=== PATIENT | male | born 1995 | race Caucasian/White ===

== ENCOUNTER 2023-08-16 10:29 | Outpatient (AMB) | payer MEDICARE, MEDICAID, SELFPAY ==
[2023-08-16 10:30] VITALS: BP 132/84; PULSE 80; O2SAT 97; BMI 42.2
--- NOTE | 2023-08-16 10:30 | MHC.PC.OV ---
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: No Allergies No Known Allergies Allergy (Verified 08/16/23 10:49) Medication List - Last Reconciled 08/16/23 by Austin Jensen PA-C acetaminophen mg PO benztropine 1 mg PO BID desmopressin mg PO divalproex ER mg PO divalproex ER 1,000 mg PO BID haloperidol 5 mg PO BID ibuprofen 600 mg PO TID levothyroxine 175 mcg PO DAILY lithium carbonate 600 mg PO BID melatonin 9 mg PO BEDTIME PRN ondansetron 4 mg PO Q6-8H PRN propranolol 40 mg PO BID propranolol ER 80 mg PO DAILY Tobacco use date assessed: 08/16/23 Dental Screening Dental Screen Date: 08/16/23 Did you have a dental visit in the last 12 months?: No Did you have a dental problem in the last 6 months where you did not have access to dental care?: No Was dental information given to patient?: Patient has dentist HPI Medical Director Of Hospice Request PE HPI Details Patient is a 28-year-old male here today for new patient annual physical. Patient has a past medical history significant for mood disorder, hypothyroidism. He presents today with long-term workers. Previous PCP was in [facility]. Concern--> has some right great toe calcification to which he has an upcoming appointment with a manager progressive care for foot care. Also has been suffering with constipation and would like a stool softener .. According to patient's mother (on speaker phone during visit)--> patient has cerebral palsy and when at a young child did undergo brain surgery for a large hemangioma that resulted in Tyree being left with left-sided hemiplegia. .. Diabetes insipidus: Was followed by land development project manager in [facility] and continues on desmopressin. Vaccines: need Flu vaccine, Need Tdap, UTD COVID [facility] Family History (Updated 08/16/23 @ 11:03 by Austin Jensen PA-C) Paternal Grandmother No problems noted. Social History Housing: Assisted Living Facility (long-term ) Patient Tobacco Use Status: Never used Tobacco service: No Current occupational status: disabled Cognitive needs: Yes Hearing needs: No Vision needs: No Questionnaire PHQ-9 Over the last 2 weeks, how often have you been bothered by any of the following problems? 1. Little interest or pleasure in doing things: several days 2. Feeling down, depressed, or hopeless: several days 3. Trouble falling or staying asleep, or sleeping too much: not at all 4. Feeling tired or having little energy: not at all 5. Poor appetite or overeating: not at all 6. Feeling bad about yourself - or that you are a failure or have let yourself or your family down: not at all 7. Trouble concentrating on things, such as reading the newspaper or watching television: not at all 8. Moving or speaking so slowly that other people could have noticed. Or the opposite - being so fidgety or restless that you have been moving around a lot more than usual: not at all 9. Thoughts that you would be better off or of hurting yourself in some way: not at all Total score: 2 Depression Screening Interpretation: Positive Depression Screening Follow-up: Existing condition and In treatment Depression Screening Done: Yes Source: Developed by Drs. Francis Diop, Perla Mike, Jimenez Woods and colleagues, with an educational chelle from [employer]. Thrive Questionnaire Date Thrive assessed: 08/16/23 I am a: Parent/Caregiver What is your living situation today?: I have a steady place to live Within the past 12 months, did the food you bought not last and you didn't have the money to get more?: Never true Within the past 12 months, did you worry whether your food would run out before you got money to buy more?: Never true Do you have trouble paying for medicines?: No Do you have trouble getting transportation to medical appointments?: No Do you have trouble paying your heating and electricity bill?: No Do you have trouble taking care of your child, family member or friend?: No Do you have trouble with day-to-day activities such as bathing, preparing meals, shopping, managing finances, etc.?: No Are you currently unemployed and looking for a job?: No Are you interested in more education?: No Please select the resources that you would like help with: None THRIVE Score: 0 AUDIT C Alcohol Use Questionnaire (AUDIT-C) 1. How often do you have a drink containing alcohol?: Never 3. How often do you have six or more drinks on one occasion?: Never Total Score: 0 CORNELIO-7 AMB Questionnaire CORNELIO-7 Date CORNELIO - 7 assessed: 08/16/23 Feeling nervous, anxious, or on edge: 1 = Several days Not being able to stop or control worryin = Several days Worrying too much about different things: 0 = Not at all Trouble relaxin = Not at all Being so restless that it is hard to sit still: 0 = Not at all Becoming easily annoyed or irritable: 0 = Not at all Feeling afraid as if something awful might happen: 0 = Not at all Total CORNELIO-7 score (0-4 normal; 5-9 mild; 10-14 moderate; 15-21 severe): 2 Source: Developed by Drs. Francis Diop, Perla Mike, Jimenez Woods and colleagues, with an educational chelle from [employer]. Physical exam (Primary Care) Vital Signs: Last Vital Signs Pulse 80 08/16/23 10:30 BP 132/84 08/16/23 10:30 Pulse Ox 97 08/16/23 10:30 Oxygen Delivery Method Room Air 08/16/23 10:30 BMI result Body Mass Index 42.2 Tobacco/Smoking Status: Tobacco use Status Tobacco use date assessed 08/16/23 08/16/23 10:46 Patient Tobacco Use Status Never used Tobacco 08/16/23 10:46 PHQ-9: PHQ-9 Score PHQ-9: Total score 2 08/16/23 10:53 Depression Screening Interpretation: Positive Depression Screening Follow-up: Existing condition and In treatment Thrive Assessment: Date of Thrive Assessment Date Thrive assessed 08/16/23 08/16/23 10:46 Assessment and Plan Assessment & Plan (1) Diabetes insipidus: Code(s): E23.2 - Diabetes insipidus Plan: Recently transferred from [facility]. Was followed by an land development project manager and still has follow-up. Does take desmopressin (2) Hypothyroid: Code(s): E03.9 - Hypothyroidism, unspecified Qualifiers: Hypothyroidism type: acquired Qualified Code(s): E03.9 - Hypothyroidism, unspecified Plan: Again was followed by endocrinology and [facility]. Does take levothyroxine on a daily basis. Will check TSH to assure normal for (3) Mood disorder: Code(s): F39 - Unspecified mood [affective] disorder Plan: Patient is followed by a psychiatrist who manages his mental health medications. (4) Bipolar 1 disorder: Code(s): F31.9 - Bipolar disorder, unspecified Plan: Again patient followed by psychiatrist who manages his mental health medications (5) Cerebral palsy: Code(s): G80.9 - Cerebral palsy, unspecified Qualifiers: Cerebral palsy type: spastic hemiplegic Qualified Code(s): G80.2 - Spastic hemiplegic cerebral palsy Plan: Has cerebral palsy with left-sided hemiplegia. He also did have a hemangioma that was surgically removed that left him left-sided hemiplegia Does need referral to orthotic specialist for left lower extremity AFO (6) Brain hemangioma: Code(s): D18.02 - Hemangioma of intracranial structures Plan: As above (7) Screening for diabetes mellitus (DM): Code(s): Z13.1 - Encounter for screening for diabetes mellitus (8) Left-sided hemiplegic cerebral palsy: Code(s): G80.8 - Other cerebral palsy Plan: As above. Family requesting to be seen by orthopedic to be evaluated for AFO for his left lower leg. (9) Chronic GERD: Code(s): K21.9 - Gastro-esophageal reflux disease without esophagitis Plan: Was previously antacid medications for his GERD and would like to restart this medication. Will start omeprazole 20 mg. (10) Obese: Code(s): E66.9 - Obesity, unspecified Qualifiers: Obesity type: due to excess calories Obesity classification: adult class 3 (BMI >= 40) Serious obesity comorbidity presence: without serious comorbidity Body mass index: BMI 40.0-44.9 Qualified Code(s): E66.01 - Morbid (severe) obesity due to excess calories; Z68.41 - Body mass index [BMI] 40.0-44.9, adult Plan: Patient does understand his BMI is over 40 to which we discuss this in the office. Advised on low carbohydrate diet and reducing his soda intake. Orders: Orders Complete Blood Count no Diff Today G80.8 - Other cerebral palsy TSH reflex Free T4 Today E03.9 - Hypothyroidism, unspecified Comprehensive [place]. 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
== END 2023-08-16 11:23 | disposition home or self-care (01) ==
PROVIDERS: PCP Physician Assistant; Visit Provider Physician Assistant
DX: Z00.00 Encounter for general adult medical examination without abnormal findings (principal); E23.2 Diabetes insipidus; F39 Unspecified mood [affective] disorder; F31.9 Bipolar disorder, unspecified; G80.2 Spastic hemiplegic cerebral palsy; D18.02 Hemangioma of intracranial structures; G80.8 Other cerebral palsy; E66.01 Morbid (severe) obesity due to excess calories; Z68.41 Body mass index [BMI] 40.0-44.9, adult; E03.9 Hypothyroidism, unspecified; K21.9 Gastro-esophageal reflux disease without esophagitis
CPT/HCPCS: 99385

== ENCOUNTER 2023-09-20 10:01 | Outpatient (REF) | payer MEDICARE, MEDICAID, SELFPAY ==
[2023-09-20 13:55] LABS: Hematocrit 45.9 % (42.0-52.0); Hemoglobin 15.1 g/dl (14.0-18.0); Mean Corpuscular HGB Conc 32.9 g/dl (31.0-36.0); Mean Corpuscular Hemoglobin 29.7 pg (27.0-33.0); Mean Corpuscular Volume 90.2 fL (80.0-98.0); Mean Platelet Volume 9.5 fL (9.4-12.4); Platelet Count 259 X10*3/uL (160-400); Red Blood Count 5.09 X10*6/uL (4.60-5.80); White Blood Count 6.3 X10*3/uL (4.8-10.8)
[2023-09-20 14:24] LABS: Alanine Aminotransferase 28 U/L (0-40); Albumin Level 4.6 g/dL (3.5-5.0); Alkaline Phosphatase 69 U/L (39-117); Anion Gap 11 (12-20); Aspartate Amino Transferase 22 U/L (5-37); Bilirubin Total 1.1 mg/dL (0.0-1.0); Blood Urea Nitrogen 16 mg/dL (9-16); Carbon Dioxide 26 mmol/L (22-29); Chloride 107 mmol/L (96-108); Estimated Glomerular Filt Rate > 60; Glucose Fasting 95 mg/dL (60-99); Potassium 4.3 mmol/L (3.3-5.1); Sodium 140 mmol/L (135-145); Total Protein 7.6 g/dL (6.5-8.0)
[2023-09-20 14:26] LABS: TSH reflex Free T4 0.89 uIU/mL (0.32-4.0)
== END 2023-09-20 10:02 | disposition home or self-care (01) ==
LOC: HO.HMGCLDS 10:01
PROVIDERS: Visit Provider Physician Assistant
DX: G80.8 Other cerebral palsy (principal); E03.9 Hypothyroidism, unspecified; Z13.1 Encounter for screening for diabetes mellitus
CPT/HCPCS: 36415; 80053; 84443; 85027

== ENCOUNTER 2024-02-06 07:42 | Outpatient (AMB) | payer MEDICARE, MEDICAID, SELFPAY ==
[2024-02-06 08:13] VITALS: BP 132/78; PULSE 83; O2SAT 98; BMI 40.9
--- NOTE | 2024-02-06 08:13 | MHC.PC.OV ---
Vital Signs 02/06/24 08:13 Height 5 ft 5 in Weight 245 lb 13.047 oz BMI 40.9 BP 132/78 Blood Pressure Location Lt brachial Position Sitting Pulse 83 Pulse Source Pulse Oximeter Pulse Oximetry (%) 98 Oxygen Delivery Method Room Air Intake Visit Reasons: [facility] 01/10 given other client's medication Intake Note: Patient is here for hospital discharge follow up. Patient was discharged from [hospital name] on [date]. 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: No Allergies No Known Allergies Allergy (Verified 02/06/24 08:22) Medication List - Last Reconciled 02/06/24 by Austin Jensen PA-C acetaminophen mg PO benztropine 1 mg PO BID desmopressin mg PO divalproex ER mg PO divalproex ER 1,000 mg PO BID docusate sodium (Colace) 100 mg PO DAILY 30 days haloperidol 5 mg PO BID ibuprofen 600 mg PO TID levothyroxine 175 mcg PO DAILY lithium carbonate 600 mg PO BID melatonin 9 mg PO BEDTIME PRN miscellaneous medical supply 1 ea miscellaneous DAILY 99 days omeprazole 20 mg PO DAILY 90 days ondansetron 4 mg PO Q6-8H PRN propranolol 40 mg PO BID propranolol ER 80 mg PO DAILY Tobacco use date assessed: 08/16/23 Dental Screening Dental Screen Date: 08/16/23 HPI [facility] 01/10 given other client's medication HPI Details Patient is a 29-year-old male here today for hospital discharge follow-up. Patient has a past medical history significant for mood disorder, hypothyroidism. Was seen at [facility] in 01/11/2024 for a medication administration error. He presents today with [facility]. Other issues reported today was his left 5th digit nail was self removed by [facility]. They have been placing a Band-Aid over to protect the nail bed. Also has developed a callus formation over his left 5th digit as well. They have been seen by urgent care for this toe infection was placed on antibiotics. 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 Social History Housing: Assisted Living Facility ([facility] Patient Tobacco Use Status: Never used Tobacco service: No Current occupational status: disabled Cognitive needs: Yes Hearing needs: No Vision needs: No Questionnaire Thrive Questionnaire Date Thrive assessed: 08/16/23 I am a: Parent/Caregiver What is your living situation today?: I have a steady place to live Within the past 12 months, did the food you bought not last and you didn't have the money to get more?: Never true Within the past 12 months, did you worry whether your food would run out before you got money to buy more?: Never true Do you have trouble paying for medicines?: No Do you have trouble getting transportation to medical appointments?: No Do you have trouble paying your heating and electricity bill?: No Do you have trouble taking care of your child, family member or friend?: No Do you have trouble with day-to-day activities such as bathing, preparing meals, shopping, managing finances, etc.?: No Are you currently unemployed and looking for a job?: No Are you interested in more education?: No Please select the resources that you would like help with: None THRIVE Score: 0 AUDIT C Alcohol Use Questionnaire (AUDIT-C) 1. How often do you have a drink containing alcohol?: Never 3. How often do you have six or more drinks on one occasion?: Never Total Score: 0 CORNELIO-7 AMB Questionnaire CORNELIO-7 Date CORNELIO - 7 assessed: 08/16/23 Source: Developed by Drs. Francis Diop, Perla Mike, Jimenez Woods and colleagues, with an educational chelle from [employer]. Review of Systems Const Denies headache(s) Eyes Denies loss of vision ENT Denies vertigo, Denies dizziness, Denies headache(s) and Denies sore throat Card Denies chest pain, Denies leg edema and Denies lightheadedness Resp Denies cough, Denies hemoptysis and Denies wheezing GI Denies abdominal pain, Denies melena, Denies constipation, Denies diarrhea and Denies vomiting Denies dysuria, Denies urinary frequency and Denies urinary urgency Musc Denies arthralgias, Denies joint swelling, Denies numbness and Denies tingling Neuro Denies Abnormal speech present, Denies behavioral changes, Denies vertigo, Denies dizziness, Denies headache(s), Denies loss of vision, Denies memory loss, Denies numbness and Denies tingling Psych Denies anxiety, Denies behavioral changes, Denies depression, Denies memory loss and Denies panic attacks Favian/Lymph Denies easy bleeding and Denies easy bruising Aller/Immun Denies wheezing Physical exam (Primary Care) Vital Signs: Last Vital Signs Pulse 83 02/06/24 08:13 BP 132/78 02/06/24 08:13 Pulse Ox 98 02/06/24 08:13 Oxygen Delivery Method Room Air 02/06/24 08:13 BMI result Body Mass Index 40.9 Tobacco/Smoking Status: Tobacco use Status Tobacco use date assessed 08/16/23 02/06/24 08:18 Patient Tobacco Use Status Never used Tobacco 02/06/24 08:18 Thrive Assessment: Date of Thrive Assessment Date Thrive assessed 08/16/23 02/06/24 08:18 Const General: healthy appearing, no acute distress, alert and awake Nutritional Appearance: well nourished Orientation/consciousness: oriented to person, oriented to place and oriented to time HENMT Ears: TM's normal bilaterally General nose exam: Normal nasal mucous membranes and turbinates present Eyes Conjunctivae: conjunctivae normal Sclerae: sclerae normal Pupils: Equal, round and reactive pupils present Neck Neck: Yes no lymphadenopathy and Yes no JVD Thyroid: Thyroid normal Carotids: no bruits Resp Effort & Inspection: normal respiratory effort and not tachypneic Auscultation: no crackles, no rales, no rhonchi and no wheezes Cardio Rate: regular rate Rhythm: regular rhythm Heart sounds: no murmurs and normal S1 and S2 GI Palpation (GI): Soft to palpation, nontender, no hepatomegaly and no splenomegaly Auscultation: normal bowel sounds Skin General skin exam: no rashes or lesions noted and dry skin Neuro General: oriented to person, oriented to place and oriented to time Cranial nerves: Yes Equal, round and reactive pupils present Speech: No Abnormal speech present Gait exam (Neuro): Normal gait present Motor exam (neuro): no tremor noted Extrem Right upper extremity: full ROM Left upper extremity: full ROM Hand/finger images: 1. COMPLETE REMOVAL OF THE NAIL Right lower extremity: full ROM; no edema Left lower extremity: full ROM; no edema Psych Mental Status: mental status grossly normal Speech and movement: Normal speech and movement present Affect: normal affect Attitude: cooperative Thought process: Normal thought process present Assessment and Plan Assessment & Plan (1) Infected nailbed of finger: Code(s): L03.019 - Cellulitis of unspecified finger Qualifiers: Laterality: left Qualified Code(s): L03.012 - Cellulitis of left finger Plan: Patient has a complete self removal of the left 5th digit nail. Will continue management with Band-Aid and topical antibiotic. Explained that it will take a while for the nail to grow back. (2) Foot callus: Code(s): L84 - Corns and callosities Plan: Has foot callus of the left 5th digit. Did see urgent care for the acute infection, appears noninfected at this time. Advised on following with Podiatry for possible foot/shoe insert to offload area. Orders: Referrals Gastroenterology Referral K21.9 - Gastro-esophageal reflux disease without esophagitis Medications: New mupirocin 2% Apply thin layer to left pinky nail bed daily 1 appl topical DAILY 22 grams 0RF 30 days L03.012 - Cellulitis of left finger Coding Level of Care Code Est Pt Level 3 (57961) Diagnoses Infection of nail bed of finger of left hand L03.012 Laterality: left Foot callus L84
== END 2024-02-06 08:39 | disposition home or self-care (01) ==
PROVIDERS: PCP Physician Assistant; Visit Provider Physician Assistant
DX: L03.012 Cellulitis of left finger (principal); L84 Corns and callosities
CPT/HCPCS: 99213

== ENCOUNTER 2024-03-11 19:04 | Emergency (ER) | payer MEDICARE, MEDICAID, SELFPAY ==
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
[2024-03-11 19:30] VITALS: BP 131/90; PULSE 70; RESP 16; TEMP 36.6; O2SAT 94; BMI 42.8
[2024-03-12 00:18] VITALS: BP 131/90; PULSE 70; RESP 16; TEMP 36.6; O2SAT 94
== END 2024-03-12 00:20 | disposition home or self-care (01) ==
PROVIDERS: Emergency Provider Emergency Medicine
DX: S50.811A Abrasion of right forearm, initial encounter (principal); S00.91XA Abrasion of unspecified part of head, initial encounter; R51.9 Headache, unspecified; M25.551 Pain in right hip; M79.601 Pain in right arm; Y04.2XXA Assault by strike against or bumped into by another person, initial encounter; Y93.89 Activity, other specified; Y92.89 Other specified places as the place of occurrence of the external cause; Y99.0 Civilian activity done for income or pay
CPT/HCPCS: 70450; 99282; 99284

== ENCOUNTER 2024-04-10 10:53 | Outpatient (AMB) | payer MEDICARE, MEDICAID, SELFPAY ==
--- NOTE | 2024-04-10 11:03 | A.OFFPC_ITS ---
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 Required: No Accompanied by: Program Staff Allergies No Known Allergies Allergy (Verified 04/10/24 11:18) Medication List - Last Reconciled 04/10/24 by Austin Jensen PA-C acetaminophen mg PO benztropine 1 mg PO BID desmopressin mg PO divalproex ER 1,000 mg PO BID divalproex ER 250 mg PO BID docusate sodium (Colace) 100 mg PO DAILY 30 days haloperidol 5 mg PO BID ibuprofen 600 mg PO TID levothyroxine 175 mcg PO DAILY lithium carbonate 300 mg PO BID lithium carbonate 150 mg PO BID lithium carbonate 300 mg PO BID melatonin 9 mg PO BEDTIME PRN melatonin 3 mg PO BEDTIME PRN miscellaneous medical supply 1 ea miscellaneous DAILY 99 days mupirocin 2% 1 appl topical DAILY 30 days omeprazole 20 mg PO DAILY 90 days ondansetron 4 mg PO Q6-8H PRN propranolol 40 mg PO BID propranolol ER 80 mg PO DAILY Tobacco use date assessed: 08/16/23 Dental Screening Dental Screen Date: 08/16/23 HPI f/u med review HPI Details Patient is a 29-year-old male here today for follow-up visit Patient has a past medical history significant for mood disorder, hypothyroidism, cerebral palsy history of brain hemorrhage with left-sided hemiplegia He presents today with residential workers. Bipolar disorder/mood disorder: Patient followed by Psychiatry who manages all of his mental health medications. trim line worker reports patient's behavior mood has been fairly stable on current dose of his mental health medications. .. Hypothyroidism: Continues on levothyroxine 175 mcg. Will continue to follow TSH to assure normal .. According to patient's mother (on speaker phone during visit)--> patient has cerebral palsy and when at a young child did undergo brain surgery for a large hemangioma that resulted in Tyree being left with left-sided hemiplegia. .. Diabetes insipidus: Was followed by supervising producer in [facility] and continues on desmopressin. [facility] Medical History Hypothyroid Bipolar disorder Mood disorder Cerebral palsy Bipolar 1 disorder Chronic GERD Family History Paternal Grandmother No problems noted. Social History Housing: Assisted Living Facility (residential ) Patient Tobacco Use Status: Never used Tobacco service: No Current occupational status: disabled Cognitive needs: Yes Hearing needs: No Vision needs: No Questionnaire Thrive Questionnaire Date Thrive assessed: 08/16/23 Are you currently unemployed and looking for a job?: I choose not to answer this question CORNELIO-7 AMB Questionnaire CORNELIO-7 Date CORNELIO - 7 assessed: 08/16/23 Source: Developed by Drs. Francis Diop, Perla Mike, Jimenez Woods and colleagues, with an educational chelle from [employer]. Review of Systems Const Denies headache(s) Eyes Denies loss of vision ENT Denies vertigo, Denies dizziness, Denies headache(s) and Denies sore throat Card Denies chest pain, Denies leg edema and Denies lightheadedness Resp Denies cough, Denies hemoptysis and Denies wheezing GI Denies abdominal pain, Denies melena, Denies constipation, Denies diarrhea and Denies vomiting Denies dysuria, Denies urinary frequency and Denies urinary urgency Musc Denies arthralgias, Denies joint swelling, Denies numbness and Denies tingling Neuro Denies Abnormal speech present, Denies behavioral changes, Denies vertigo, Denies dizziness, Denies headache(s), Denies loss of vision, Denies memory loss, Denies numbness and Denies tingling Psych Denies anxiety, Denies behavioral changes, Denies depression, Denies memory loss and Denies panic attacks Favian/Lymph Denies easy bleeding and Denies easy bruising Aller/Immun Denies wheezing Physical exam (Primary Care) Vital Signs: Last Vital Signs Pulse 82 04/10/24 11:14 BP 120/70 04/10/24 11:14 Pulse Ox 96 04/10/24 11:14 Oxygen Delivery Method Room Air 04/10/24 11:14 BMI result Body Mass Index 43.3 Tobacco/Smoking Status: Tobacco use Status Tobacco use date assessed 08/16/23 04/10/24 11:03 Patient Tobacco Use Status Never used Tobacco 04/10/24 11:03 Thrive Assessment: Date of Thrive Assessment Date Thrive assessed 08/16/23 04/10/24 11:03 Const General: healthy appearing, no acute distress, alert and awake Nutritional Appearance: well nourished Orientation/consciousness: oriented to person, oriented to place and oriented to time HENMT Ears: TM's normal bilaterally General nose exam: Normal nasal mucous membranes and turbinates present Eyes Conjunctivae: conjunctivae normal Sclerae: sclerae normal Pupils: Equal, round and reactive pupils present Neck Neck: Yes no lymphadenopathy and Yes no JVD Thyroid: Thyroid normal Carotids: no bruits Resp Effort & Inspection: normal respiratory effort and not tachypneic Auscultation: no crackles, no rales, no rhonchi and no wheezes Cardio Rate: regular rate Rhythm: regular rhythm Heart sounds: no murmurs and normal S1 and S2 GI Palpation (GI): Soft to palpation, nontender, no hepatomegaly and no splenomegaly Auscultation: normal bowel sounds Skin General skin exam: no rashes or lesions noted and dry skin Neuro General: oriented to person, oriented to place and oriented to time Cranial nerves: Yes Equal, round and reactive pupils present Speech: No Abnormal speech present Gait exam (Neuro): Normal gait present Motor exam (neuro): no tremor noted Extrem Right upper extremity: full ROM Left upper extremity: full ROM Right lower extremity: full ROM; no edema Left lower extremity: full ROM; no edema Psych Mental Status: mental status grossly normal Speech and movement: Normal speech and movement present Affect: normal affect Attitude: cooperative Thought process: Normal thought process present Assessment and Plan Assessment & Plan (1) Hypothyroid: Code(s): E03.9 - Hypothyroidism, unspecified Qualifiers: Hypothyroidism type: acquired Qualified Code(s): E03.9 - Hypothyroidism, unspecified Plan: Patient continues on levothyroxine 175 mcg daily. TSH has been stable. Will recheck TSH before upcoming annual physical to assure normal. (2) Bipolar disorder: Code(s): F31.9 - Bipolar disorder, unspecified Qualifiers: Active/Remission status: currently active Current bipolar episode type: depressed Current episode severity: moderate Qualified Code(s): F31.32 - Bipolar disorder, current episode depressed, moderate Plan: Patient continues to follow a psychiatrist who manages all of his mental health medications. [facility] staff reports Tyree behaviors have been pretty stable on current doses of his medications. (3) Bipolar 1 disorder: Code(s): F31.9 - Bipolar disorder, unspecified Plan: Again patient followed by psychiatrist who manages his mental health medications (4) Cerebral palsy: Code(s): G80.9 - Cerebral palsy, unspecified Qualifiers: Cerebral palsy type: spastic hemiplegic Qualified Code(s): G80.2 - Spastic hemiplegic cerebral palsy Plan: Has cerebral palsy with left-sided hemiplegia. He also did have a hemangioma that was surgically removed that left him left- sided hemiplegia Does need referral to orthotic specialist for left lower extremity AFO (5) Brain hemangioma: Code(s): D18.02 - Hemangioma of intracranial structures Plan: As above (6) Screening for diabetes mellitus (DM): Code(s): Z13.1 - Encounter for screening for diabetes mellitus Orders: Orders TSH reflex Free T4 Today E03.9 - Hypothyroidism, unspecified Comprehensive [place]. Panel Fast Today Z13.1 - Encounter for screening for diabetes mellitus Complete Blood Count no Diff Today Z13.1 - Encounter for screening for diabetes mellitus Coding Level of Care Code Est Pt Level 4 (27419) Diagnoses Acquired hypothyroidism E03.9 Hypothyroidism type: acquired Bipolar affective disorder, currently depressed, moderate F31.32 Active/Remission status: currently active Current bipolar episode type: depressed Current episode severity: moderate Bipolar 1 disorder F31.9 Spastic hemiplegic cerebral palsy G80.2 Cerebral palsy type: spastic hemiplegic Brain hemangioma D18.02 Screening for diabetes mellitus (DM) Z13.1
[2024-04-10 11:14] VITALS: BP 120/70; PULSE 82; O2SAT 96; BMI 43.3
== END 2024-04-10 11:35 | disposition home or self-care (01) ==
PROVIDERS: Visit Provider Physician Assistant
DX: E03.9 Hypothyroidism, unspecified (principal); F31.32 Bipolar disorder, current episode depressed, moderate; G80.2 Spastic hemiplegic cerebral palsy; D18.02 Hemangioma of intracranial structures; Z13.1 Encounter for screening for diabetes mellitus

== ENCOUNTER → 2024-04-10 10:53 | Outpatient (BNVA) | payer MEDICARE, MEDICAID, SELFPAY | PROVIDERS: Visit Provider Physician Assistant | DX: E03.9 Hypothyroidism, unspecified (principal); F31.32 Bipolar disorder, current episode depressed, moderate; F31.9 Bipolar disorder, unspecified; G80.2 Spastic hemiplegic cerebral palsy | CPT/HCPCS: 99212 ==

== ENCOUNTER 2024-06-25 10:23 | Outpatient (AMB) | payer MEDICARE, MEDICAID, SELFPAY ==
--- NOTE | 2024-06-25 10:44 | A.OFFPC_ITS ---
Vital Signs 06/25/24 10:45 Height 5 ft 4 in Weight 261 lb 0.437 oz BMI 44.8 BP 110/78 Blood Pressure Location Rt brachial Position Sitting Pulse 93 Pulse Source Pulse Oximeter Pulse Oximetry (%) 97 Intake Visit Reasons: [facility] 06/15 Chest pain Community Health Education Coordinator Required: No Accompanied by: Cipriano-Program Allergies No Known Allergies Allergy (Verified 06/25/24 10:51) Medication List - Last Reconciled 06/26/24 by Ravinder Castellanos MD acetaminophen mg PO benztropine 1 mg PO BID desmopressin mg PO divalproex ER 1,000 mg PO BID divalproex ER 250 mg PO BID docusate sodium (Colace) 100 mg PO DAILY 30 days haloperidol 5 mg PO BID ibuprofen 600 mg PO TID levothyroxine 175 mcg PO DAILY lithium carbonate 300 mg PO BID lithium carbonate 150 mg PO BID lithium carbonate 300 mg PO BID melatonin 9 mg PO BEDTIME PRN melatonin 3 mg PO BEDTIME PRN miscellaneous medical supply 1 ea miscellaneous DAILY 99 days mupirocin 2% 1 appl topical DAILY 30 days omeprazole 20 mg PO DAILY 90 days ondansetron 4 mg PO Q6-8H PRN propranolol 40 mg PO BID propranolol ER 80 mg PO DAILY Tobacco use date assessed: 08/16/23 Dental Screening Dental Screen Date: 08/16/23 [facility] Chest pain HPI Details 29-year-old male presents to the office for a follow-up after a recent ER visit. Patient lives in a assisted and complained of chest pain and was taken to the emergency room for evaluation. EKG and serial blood work were unremarkable. Patient is not a reliable historian. The attendant accompanying him is requesting a podiatry consult. [facility] Medical History Hypothyroid Bipolar disorder Mood disorder Cerebral palsy Bipolar 1 disorder Chronic GERD Family History Paternal Grandmother No problems noted. Social History Housing: Assisted Living Facility (assisted ) Patient Tobacco Use Status: Never used Tobacco service: No Current occupational status: disabled Cognitive needs: Yes Hearing needs: No Vision needs: No Questionnaire Thrive Questionnaire Date Thrive assessed: 08/16/23 Are you currently unemployed and looking for a job?: I choose not to answer this question CORNELIO-7 AMB Questionnaire CORNELIO-7 Date CORNELIO - 7 assessed: 08/16/23 Source: Developed by Drs. Francis Dipo, Perla Mike, Jimenez Woods and colleagues, with an educational chelle from [employer]. Physical exam (Primary Care) Vital Signs: Last Vital Signs Pulse 93 06/25/24 10:45 BP 110/78 06/25/24 10:45 Pulse Ox 97 06/25/24 10:45 BMI result Body Mass Index 44.8 Tobacco/Smoking Status: Tobacco use Status Tobacco use date assessed 08/16/23 06/25/24 10:48 Patient Tobacco Use Status Never used Tobacco 06/25/24 10:48 Thrive Assessment: Date of Thrive Assessment Date Thrive assessed 08/16/23 06/25/24 10:48 Const General: cooperative and healthy appearing Nutritional Appearance: well nourished Orientation/consciousness: patient oriented x3 Limitations: no limitations HENMT Head: Yes normal to inspection Eyes General: appearance normal, both eyes and all related structures Neck Neck: Yes normal visual inspection Chest Chest palpation & inspection: normal palpation of entire chest wall Resp Effort & Inspection: normal respiratory effort Neuro General: patient oriented x3 Extrem Other: Right foot: Great toe: Thickened skin on the medial surface. Similar lesion on the 5th toe of the left foot. Coding Level of Care Code Est Pt Level 3 (90272) Complex EM visit Add On G2211 Diagnoses Foot callus L84 Chest pain R07.9 Assessment & Plan Assessment & Plan (1) Foot callus: Code(s): L84 - Corns and callosities Category: Medical Plan: Podiatry consult made. (2) Chest pain: Code(s): R07.9 - Chest pain, unspecified Plan: ER note reviewed. Reassurance.
[2024-06-25 10:45] VITALS: BP 110/78; PULSE 93; O2SAT 97; BMI 44.8
== END 2024-06-25 12:40 | disposition home or self-care (01) ==
PROVIDERS: PCP Physician Assistant; Visit Provider Internal Medicine
DX: L84 Corns and callosities (principal); R07.9 Chest pain, unspecified

== ENCOUNTER → 2024-06-25 10:23 | Outpatient (BNVA) | payer MEDICARE, MEDICAID, SELFPAY | PROVIDERS: PCP Physician Assistant; Visit Provider Internal Medicine | DX: L84 Corns and callosities (principal); R07.9 Chest pain, unspecified | CPT/HCPCS: 99212 ==

== ENCOUNTER 2024-07-25 11:39 | Outpatient (REF) | payer MEDICARE, MEDICAID, SELFPAY ==
[2024-07-26 09:42] LABS: Adenovirus PCR Not Detected (Not Detect.); Bordetella parapertussis PCR Not Detected (Not Detect.); Bordetella pertussis PCR Not Detected (Not Detect.); Chlamydia pneumoniae PCR Not Detected (Not Detect.); Coronavirus 229E PCR Not Detected (Not Detect.); Coronavirus HKU1 PCR Not Detected (Not Detect.); Coronavirus NL63 PCR Not Detected (Not Detect.); Coronavirus OC43 PCR Detected (Not Detect.); Human metapneumovirus PCR Not Detected (Not Detect.); Influenza A PCR Not Detected (Not Detect.); Influenza B PCR Not Detected (Not Detect.); Mycoplasma pneumoniae PCR Not Detected (Not Detect.); Parainfluenza 1 PCR Not Detected (Not Detect.); Parainfluenza 2 PCR Not Detected (Not Detect.); Parainfluenza 3 PCR Not Detected (Not Detect.); Parainfluenza 4 PCR Not Detected (Not Detect.); RSV PCR Not Detected (Not Detect.); Rhino/Enterovirus PCR Not Detected (Not Detect.)
[2024-07-26 09:46] LABS: SARS-CoV-2 PCR Not Detected (Not Detect.)
== END 2024-07-25 11:40 | disposition home or self-care (01) ==
LOC: HO.LAB 11:39
PROVIDERS: PCP Physician Assistant; Visit Provider Physician Assistant
DX: J06.9 Acute upper respiratory infection, unspecified (principal)
CPT/HCPCS: 87633; 99212

== ENCOUNTER 2024-07-25 11:39 | Outpatient (AMB) | payer MEDICARE, MEDICAID, SELFPAY ==
--- NOTE | 2024-07-25 13:05 | MHC.OFFWIV ---
Intake Vital Signs 07/25/24 13:07 Weight 259 lb BP 108/70 Blood Pressure Location Rt brachial Position Sitting Pulse 86 Pulse Source Pulse Oximeter Temp 99.6 F Temp Source Oral Pulse Oximetry (%) 98 Oxygen Delivery Method Room Air Intake Visit Reasons: EP Congestion, cough Intake Note: Patient here for congestion, cough that has been present for 1 day. 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 - Symptoms include a persistent cough and chest pain upon deep inhalation, with no associated fever or ear pain. - Denies headaches, wheezing, or shortness of breath. - Lives in a prison, reports no recent illness among cohabitants. - Symptoms have not been alleviated by [id number] medications besides the use of Tylenol. - No history of asthma; no prior treatments for similar respiratory symptoms have been used. Physical Exam General: Cooperative, healthy appearing, comfortable and no acute distress Orientation/consciousness: Patient oriented x3 Head: Normal to inspection Ears: Hearing grossly normal bilaterally, external ears normal and TM's normal left, right TM blocked by cerumen. Nose: Normal external nose present, Normal nares present and No nasal discharge present Face and sinus: Normal facial exam and Yes sinuses nontender Mouth: Normal oral and palatal mucosa present and moist mucous membranes Throat: Yes tonsils normal, Yes uvula midline. Posterior oropharynx erythema Eyes: Appearance normal, both eyes and all related structures Neck: Normal visual inspection Respiratory: Clear to auscultation bilaterally. Normal respiratory effort, able to speak in complete sentences, Actively coughing, no respiratory distress, not tachypneic, no tripod positioning and no use of accessory muscles, oxygenation is 98% Cardiovascular: Regular rate and rhythm. Normal S1 and S2 Skin: No rashes or lesions noted Neuro: Patient oriented x3 Extremities: Normal to inspection and Yes no clubbing, cyanosis or edema [facility] Medical History Hypothyroid Bipolar disorder Mood disorder Cerebral palsy Bipolar 1 disorder Chronic GERD Family History Paternal Grandmother No problems noted. Social History Housing: Assisted Living Facility (prison ) Patient Tobacco Use Status: Never used Tobacco service: No Current occupational status: disabled Cognitive needs: Yes Hearing needs: No Vision needs: No Review of Systems Const All systems reviewed & are unremarkable except as noted in HPI and below Physical Exam Vital Signs: Last Vital Signs Temp 99.6 F 07/25/24 13:07 Pulse 86 07/25/24 13:07 BP 108/70 07/25/24 13:07 Pulse Ox 98 07/25/24 13:07 Oxygen Delivery Method Room Air 07/25/24 13:07 Assessment & Plan Assessment & Plan (1) URI, acute: Code(s): J06.9 - Acute upper respiratory infection, unspecified Plan: Plan To manage the patient's acute respiratory symptoms, a comprehensive viral panel will be administered to identify potential respiratory infections, including influenza, COVID-19, and RSV. Tessalon Perles has been prescribed for cough management, to be used as needed with an emphasis on nighttime administration to ensure better symptom control while resting. I stress the importance of increasing fluid intake to aid mucus clearance, given the absence of chronic pulmonary conditions. The patient is directed to monitor symptom progression and ensure immediate evaluation if respiratory distress develops. Follow-up actions will be determined based on the results of the viral testing, anticipating additional treatment guidance by the subsequent day. Filled out prison paperwork. Patient was informed and verbally consented to the use of an ambient scribe for clinic note documentation during this visit Orders: Orders Resp Pathogen [place] [facility] J06.9 - Acute upper respiratory infection, unspecified Medications: New benzonatate 200 mg PO TID PRN 14 caps 0RF cough Coding Level of Care Code Est Pt Level 4 (29620) Diagnoses URI, acute J06.9
[2024-07-25 13:07] VITALS: BP 108/70; PULSE 86; TEMP 37.6; O2SAT 98
== END 2024-07-25 14:14 | disposition home or self-care (01) ==
PROVIDERS: PCP Physician Assistant; Visit Provider Physician Assistant
DX: J06.9 Acute upper respiratory infection, unspecified (principal)

== ENCOUNTER 2024-08-01 13:47 | Outpatient (AMB) | payer MEDICARE, MEDICAID, SELFPAY ==
[2024-08-01 14:00] VITALS: BP 102/70; PULSE 81; O2SAT 96; BMI 45.2
--- NOTE | 2024-08-01 14:00 | A.OFFPC_ITS ---
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 Patient has a past medical history significant for mood disorder, hypothyroidism, cerebral palsy history of brain hemorrhage with left-sided hemiplegia Patient recently seen at the [facility] for upper respiratory infection type symptoms. He was tested viral illnesses and was positive for cold virus coronavirus. Other concerns today were of patient's previous history of obstructive sleep apnea. Due to living in a correction they have to confirm this diagnosis. They are interested in getting a home sleep study to confirm diagnosed with obstructive sleep apnea. Also there were some concerns about patient's urinary urgency recently as he has been having some incontinence episodes. They concerned about UTI thus will do a home UA and bring it to the lab at a later date. [facility] Medical History Hypothyroid Bipolar disorder Mood disorder Cerebral palsy Bipolar 1 disorder Chronic GERD Family History Paternal Grandmother No problems noted. Social History Housing: Assisted Living Facility (correction ) Patient Tobacco Use Status: Never used Tobacco e-Cigarette/Vaping Use: Never Used service: No Current occupational status: disabled Cognitive needs: Yes Hearing needs: No Vision needs: No Questionnaire PHQ-9 Over the last 2 weeks, how often have you been bothered by any of the following problems? 1. Little interest or pleasure in doing things: not at all 2. Feeling down, depressed, or hopeless: not at all 3. Trouble falling or staying asleep, or sleeping too much: not at all 4. Feeling tired or having little energy: not at all 5. Poor appetite or overeating: not at all 6. Feeling bad about yourself - or that you are a failure or have let yourself or your family down: not at all 7. Trouble concentrating on things, such as reading the newspaper or watching t elevision: not at all 8. Moving or speaking so slowly that other people could have noticed. Or the opposite - being so fidgety or restless that you have been moving around a lot more than usual: not at all 9. Thoughts that you would be better off or of hurting yourself in some way: not at all Total score: 0 Depression Screening Interpretation: Negative Depression Screening Done: Yes 15042 - PHQ-9 Billing: Yes Source: Developed by Drs. Francis Diop, Perla Mike, Jimenez Woods and colleagues, with an educational chelle from [employer]. Thrive Questionnaire Date Thrive assessed: 08/01/24 I am a: Patient What is your living situation today?: I have a steady place to live Within the past 12 months, did the food you bought not last and you didn't have the money to get more?: Never true Within the past 12 months, did you worry whether your food would run out before you got money to buy more?: Never true Do you have trouble paying for medicines?: No Do you have trouble getting transportation to medical appointments?: No Do you have trouble paying your heating and electricity bill?: No Do you have trouble taking care of your child, family member or friend?: No Do you have trouble with day-to-day activities such as bathing, preparing meals, shopping, managing finances, etc.?: No Are you currently unemployed and looking for a job?: No Are you interested in more education?: No Please select the resources that you would like help with: None Currently or been in a relationship where the following occur: No concerns reported THRIVE Score: 0 AUDIT C Alcohol Use Questionnaire (AUDIT-C) 1. How often do you have a drink containing alcohol?: Never 3. How often do you have six or more drinks on one occasion?: Never Total Score: 0 CORNELIO-7 AMB Questionnaire CORNELIO-7 Date CORNELIO - 7 assessed: 08/01/24 Feeling nervous, anxious, or on edge: 0 = Not at all Not being able to stop or control worryin = Not at all Worrying too much about different things: 0 = Not at all Trouble relaxin = Not at all Being so restless that it is hard to sit still: 0 = Not at all Becoming easily annoyed or irritable: 0 = Not at all Feeling afraid as if something awful might happen: 0 = Not at all Total CORNELIO-7 score (0-4 normal; 5-9 mild; 10-14 moderate; 15-21 severe): 0 Source: Developed by Drs. Francis Diop, Perla Mike, Jimenez Woods and colleagues, with an educational chelle from [employer]. CORNELIO-7 Assessment Billing CORNELIO-7 Assessment Tool: CORNELIO-7 Assessment 12933 Review of Systems Const Denies headache(s) Eyes Denies loss of vision ENT Denies vertigo, Denies dizziness, Denies headache(s) and Denies sore throat Card Denies chest pain, Denies leg edema and Denies lightheadedness Resp Denies cough, Denies hemoptysis and Denies wheezing GI Denies abdominal pain, Denies melena, Denies constipation, Denies diarrhea and Denies vomiting Denies dysuria, Reports urinary frequency and Reports urinary urgency Musc Denies arthralgias, Denies joint swelling, Denies numbness and Denies tingling Neuro Denies Abnormal speech present, Denies behavioral changes, Denies vertigo, Denies dizziness, Denies headache(s), Denies loss of vision, Denies memory loss, Denies numbness and Denies tingling Psych Denies anxiety, Denies behavioral changes, Denies depression, Denies memory loss and Denies panic attacks Favian/Lymph Denies easy bleeding and Denies easy bruising Aller/Immun Denies wheezing Physical exam (Primary Care) Vital Signs: Last Vital Signs Pulse 81 08/01/24 14:00 BP 102/70 08/01/24 14:00 Pulse Ox 96 08/01/24 14:00 Oxygen Delivery Method Room Air 08/01/24 14:00 BMI result Body Mass Index 45.2 Tobacco/Smoking Status: Tobacco use Status Tobacco use date assessed 08/01/24 08/01/24 14:06 Patient Tobacco Use Status Never used Tobacco 08/01/24 14:06 e-Cigarette/Vaping Use Never Used 08/01/24 14:06 PHQ-9: PHQ-9 Score PHQ-9: Total score 0 08/01/24 14:10 Depression Screening Interpretation: Negative Thrive Assessment: Date of Thrive Assessment Date Thrive assessed 08/01/24 08/01/24 14:06 Currently or been in a relationship where the following occur: No concerns reported Const General: healthy appearing, no acute distress, alert and awake Nutritional Appearance: well nourished Orientation/consciousness: oriented to person, oriented to place and oriented to time HENMT Ears: TM's normal bilaterally General nose exam: Normal nasal mucous membranes and turbinates present Eyes Conjunctivae: conjunctivae normal Sclerae: sclerae normal Pupils: Equal, round and reactive pupils present Neck Neck: Yes no lymphadenopathy and Yes no JVD Thyroid: Thyroid normal Carotids: no bruits Resp Effort & Inspection: normal respiratory effort and not tachypneic Auscultation: no crackles, no rales, no rhonchi and no wheezes Cardio Rate: regular rate Rhythm: regular rhythm Heart sounds: no murmurs and normal S1 and S2 GI Palpation (GI): Soft to palpation, nontender, no hepatomegaly and no splenome sophy Auscultation: normal bowel sounds Skin General skin exam: no rashes or lesions noted and dry skin Neuro General: oriented to person, oriented to place and oriented to time Cranial nerves: Yes Equal, round and reactive pupils present Speech: No Abnormal speech present Gait exam (Neuro): Normal gait present Motor exam (neuro): no tremor noted Extrem Right upper extremity: full ROM Left upper extremity: full ROM Right lower extremity: full ROM; no edema Left lower extremity: full ROM; no edema Psych Mental Status: mental status grossly normal Speech and movement: Normal speech and movement present Affect: normal affect Attitude: cooperative Thought process: Normal thought process present Coding Level of Care Code Est Pt Level 4 (35041) Diagnoses Urinary frequency R35.0 URI, acute J06.9 Witnessed episode of apnea R06.81 Additional Codes CORNELIO-7 Assessment Billing - CORNELIO-7 Assessment Tool: CORNELIO-7 Assessment 14945 ([id number]) PHQ-9 - 67036 - PHQ-9 Billing: Yes ([id number]) Assessment & Plan Assessment & Plan (1) Urinary frequency: Code(s): R35.0 - Frequency of micturition Category: Medical Plan: As per HPI patient has been experiencing urinary frequency though unclear if this is due to uncontrolled diabetes insipidus. 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 Will check for type 2 diabetes as well on upcoming labs. (2) URI, acute: Code(s): J06.9 - Acute upper respiratory infection, unspecified Category: Medical Plan: Has resolved- no further cough (3) Witnessed episode of apnea: Code(s): R06.81 - Apnea, not elsewhere classified Category: Medical Plan: There has been unclear history of patient having obstructive sleep apnea thus will send for home sleep study to evaluate for sleep apnea to confirm diagnoses. Orders: Orders UA CC w/rflx Micro + Cult Today R30.0 - Dysuria, R35.0 - Frequency of micturition RT home sleep study Today R06.81 - Apnea, not elsewhere classified, R40.0 - Somnolence Hemoglobin A1c Today E23.2 - Diabetes insipidus
== END 2024-08-01 14:33 | disposition home or self-care (01) ==
PROVIDERS: PCP Physician Assistant; Visit Provider Physician Assistant
DX: R35.0 Frequency of micturition (principal); J06.9 Acute upper respiratory infection, unspecified; R06.81 Apnea, not elsewhere classified

== ENCOUNTER → 2024-08-01 13:47 | Outpatient (BNVA) | payer MEDICARE, MEDICAID, SELFPAY | PROVIDERS: PCP Physician Assistant; Visit Provider Physician Assistant | DX: R35.0 Frequency of micturition (principal); J06.9 Acute upper respiratory infection, unspecified; R06.81 Apnea, not elsewhere classified | CPT/HCPCS: 81003; 96127; 99212 ==

== ENCOUNTER → 2024-09-17 11:11 | Outpatient (REF) | payer MEDICARE, MEDICAID, SELFPAY ==
--- OUTSIDE RECORDS SUMMARY | 2024-09-17 13:40 | XMS_ITS | Encounter Summary ---
Author Organization [facility] Address [address] [place] [address] Care Team Providers Care Transportation Operations Manager Name Role Phone Austin Jensen Primary Care Provider [phone] Reason for Visit * Reason Comments Consult [place] and calluses * Consultation (Routine) - Closed Specialty Diagnoses / Procedures Referred By Jagruti velazquez Referred To Contact Podiatry / Orthopaedic Surgery Diagnoses Corns and callosities Austin Jensen PA Phone: tel: fax: Fer Hernandez DPM [address] [address] Phone: tel: fax: Referral ID Status Reason Start Date Expiration Date V isits Requested Visits Authorized [id number] Closed Specialty Services Required 07/08/2024 07/08/2025 1 1 Encounter Details Date Type Department Care Team (Late st Contact Info) Description 09/05/2024 10:15 AM EST Consult Orthopedic Surgery - [place] [address] [phone] Fer Hernandez DPM [address] [address] Hallux rigidus of right foot (Primary Dx); Corns and callosities; Fissure in skin Social History Tobacco Use Types Packs/Day Years Used Date Smoking Tobacco: Never Assessed Sex and Gender Information Value Date Recorded Sex Assigned at Not on file Legal Sex Male 1:13 PM EST Gender Identity Not on file Sexual Orientation Not on file documented as of this encounter Last Filed Vital Signs Vital Sign Reading Time Taken Comments Blood Pressure - - Pulse - - Temperature - - Respiratory Rate - - Oxygen Saturation - - Inhaled Oxygen Concentration - - Weight 118 kg (260 lb) 09/05/2024 10:28 AM EST Height 167.6 cm (5' 6 ) 09/05/2024 10:28 AM EST Body Mass Index 41.97 09/05/2024 10:28 AM EST documented in this encounter Progress Notes * Fer Hernandez DPM - 09/05/2024 10:15 AM EST Last PCP visit:Referring MD: Austin Jensen PA IDENTIFIER: Ney is a 29 y.o. year old male who presents for consultation. CC: Foot pain HPI: Location rightfoot, Symptoms dull burning achy, Severity 4/10 lupe visual analog scale. Duration of 1 year, Worse with activity morning night. Improve without activity morning night. Denies trauma just woke up with it, Modifying factors stopping activiities changing shoes, associated symptoms walking different painful thick callous right great toe ROS: GENERAL: Pt denies nausea, fever, vomiting, chills, or shortness of breath. Pt in NAD. CARDIOLOGY: pt denies chest pain, palpitations LUNGS: pt denies shortness of breath MUSCULOSKELETAL: See HPI, otherwise no joint pain or swelling, back pain, or muscle pain. SKIN: see HPI, otherwise no lesions, rash or itching NEURO: No persistent headache, weakness or numbness The remainder of the review of systems is noncontributory PAST MEDICAL HISTORY: There is no problem list on file for this patient. SOCIAL HISTORY: Social History Tobacco Use Smoking status: Not on file Smokeless tobacco: Not on file Substance Use Topics Alcohol use: Not on file ACTIVE MEDICATIONS: No outpatient medications have been marked as taking for the 09/05/24 encounter (Consult) with Fer Hernandez DPM. ALLERGIES: Not on File PHYSICAL EXAM: Visit Vitals Ht 1.676 m (66 ) Wt 118 kg (260 lb) BMI 41.97 kg/m?? BSA 2.24 m?? PODIATRIC EXAMINATION: GENERAL: Patient appears well nourished, with NAD. VASCULAR: Dorsalis pedis pulses are 2/4 bilaterally and Posterior tibial pulses are 2/4 bilaterally. Capillary filling time within normal limits the digits. No pallor on elevation or rubor on dependency. No varicosities. Denies rest pain or claudication pain. NEUROLOGICAL: Sharp/dull sensation intact, protective sensation intact 10/10 with 5.07 semmes christina bilaterally, vibratory sensation with tuning fork intact to the tibial tuberosity. ORTHOPEDIC: Good muscle strength 5/5 of all flexors and extensors. Dorsi flexion of ankle ,10 degrees, plantar flexion WNL. No muscle atrophy. DERMATOLOGICAL:.callous formation right great toe with fissure formation skin breakdown Discoloration toenails x 10 BIOMECHANICS: Ankle ROM WNL, STJ ROM wnl, MTJ ROM wnl, 1st MPJ ROM limited right . IMAGING: IMPRESSION: 1. Hallux rigidus of right foot 2. Corns and callosities 3. Fissure in skin PLAN: Pt was seen and examined, history reviewed. Recommend skin softeners and hydration right great toe Callous removed improve topical treatment Recommendations given for prefabricated insoles Follow up with shoes and orthotics previously rx X-rays offered patient declined Follow-up in 1-3 months Fer Hernandez DPM documented in this encounter Plan of Treatment Upcoming Encounters Date Type Department Care Team (Late st Contact Info) Description 12/03/2024 10:15 AM EDT Office Visit Orthopedic Surgery - [place] [address] [phone] Fer Hernandez DPM [address] [address] documented as of this encounter Visit Diagnoses Diagnosis Hallux rigidus of right foot- Primary Corns and callosities Fissure in skin Other specified disorder of skin documented in this encounter Orders Outpatient Referral Count Last Ordered Date [facility] st Ordered Date AMB REFERRAL TO PODIATRY 1 09/05/2024 documented in this encounter Care Teams Transportation Operations Manager Relationship Specialty Start Date End Date Austin Jensen PA [facility] [place] [address] PCP - General Physician Rough Planer Tender 07/08/24 documented as of this encounter
--- OUTSIDE RECORDS SUMMARY | 2024-09-17 13:40 | XMS_ITS | Clinical Summary ---
Author Organization [address] [place] [address] Address [address] [place] [address] Phone Care Team Providers Care Factory Superintendent Name Role Phone Austin Jensen Primary Care Provider Encounters Date Type Department Care Team Description 09/05/2024 10:15 AM EST Consult Orthopedic Surgery [facility] [address] [phone] Fer Hernandez DPM Hallux rigidus of right foot (Primary Dx); Corns and callosities; Fissure in skin from Last 3 Months Social History Tobacco Use Types Packs/Day Years Used Date Smoking Tobacco: Never Assessed Sex and Gender Information Value Date Recorded Sex Assigned at Not on file Legal Sex Male 1:13 PM EST Gender Identity Not on file Sexual Orientation Not on file Last Filed Vital Signs Vital Sign Reading Time Taken Comments Blood Pressure - - Pulse - - Temperature - - Respiratory Rate - - Oxygen Saturation - - Inhaled Oxygen Concentration - - Weight 118 kg (260 lb) 09/05/2024 10:28 AM EST Height 167.6 cm (5' 6 ) 09/05/2024 10:28 AM EST Body Mass Index 41.97 09/05/2024 10:28 AM EST Plan of Treatment Upcoming Encounters Date Type Department Care Team (Late st Contact Info) Description 12/03/2024 10:15 AM EDT Office Visit Orthopedic Surgery [facility] [address] [phone] Fer Hernandez DPM [address] [address] Health Maintenance Due Date Last Done Comments COVID-19 Vaccine ( season) 2024 06/05/2021, 08/29/2020, 08/08/2020 Influenza Vaccine (#1) 2024 , 04/16/2021, 06/16/2020, Additional history exists Depression Screening 07/08/2024 HIV Screening 07/08/2024 Hepatitis C Screening 07/08/2024 Medicare Annual Wellness Visit 07/08/2024 Social Influencers of Health Screening 07/08/2024 DTaP,Tdap,and Td Vaccines (8 - Td or Tdap) 07/20/2031 07/20/2021, 05/11/2012, 04/02/1999, Additional history exists Hepatitis B Vaccines Completed 1994, 1994, 1994 HIB Vaccines Completed 05/09/1995, 07/25, 1994, Additional history exists MMR Vaccines Completed 03/27/1998, 05/09/1995 IPV Vaccines Completed 04/02/1999, 07/25, 1994, Additional history exists Meningococcal ACWY Vaccine Aged Out 06/03/2013 N o longer eligible based on patient's age to complete this topic Pneumococcal Vaccine: Pediatrics (0 to 5 Years) and At-Risk Patients (6 to 64 Years) Aged Out 04/16/2015 No longer eligible based on patient's age to complete this topic HPV Vaccines Aged Out No longer eligi ble based on patient's age to complete this topic Hepatitis A Vaccines Aged Out No long er eligible based on patient's age to complete this topic Meningococcal B Vacine Aged Out No lo nger eligible based on patient's age to complete this topic RSV Immunization Patients Under 20 months Aged Out No longer eligible based on patient's age to complete this topic Varicella Vaccines Aged Out No longer eligible based on patient's age to complete this topic Insurance MEDICARE MEDICAID - [place] Care Teams Factory Superintendent Relationship Specialty Start Date End Date Austin Jensen PA [address] [place] [address] PCP - General Physician Cattle Feeder 07/08/24
== END ==
LOC: HO.SL 11:11
PROVIDERS: PCP Physician Assistant; Visit Provider Physician Assistant
DX: G47.33 Obstructive sleep apnea (adult) (pediatric) (principal); R40.0 Somnolence; R06.81 Apnea, not elsewhere classified
CPT/HCPCS: 95806

== ENCOUNTER → 2024-09-17 11:22 | Outpatient (BNV) | payer MEDICARE, MEDICAID, SELFPAY | PROVIDERS: PCP Physician Assistant; Visit Provider Internal Medicine | DX: G47.33 Obstructive sleep apnea (adult) (pediatric) (principal) | CPT/HCPCS: 95806 ==

== ENCOUNTER 2024-10-15 16:00 | Outpatient (AMB) | payer MEDICARE, MEDICAID, SELFPAY ==
[2024-10-15 16:12] VITALS: BP 112/68; PULSE 80; O2SAT 95; BMI 45.0
--- NOTE | 2024-10-15 16:12 | MHC.PC.OV ---
Vital Signs 10/15/24 16:12 Height 5 ft 4 in Weight 262 lb 5.601 oz BMI 45.0 BP 112/68 Blood Pressure Location Lt brachial Position Sitting Pulse 80 Pulse Source Pulse Oximeter Pulse Oximetry (%) 95 Oxygen Delivery Method Room Air Intake Visit Reasons: Annual Exam Senior Care Manager Required: No Accompanied by: program Allergies No Known Allergies Allergy (Verified 10/15/24 16:45) Medication List - Last Reconciled 10/15/24 by Austin Jensen PA-C acetaminophen mg PO benztropine 1 mg PO BID CPAP (CPAP Machine/Device) Need for auto PAP 6 to 20 cm of water [CPAP heated humidifier As directed] desmopressin mg PO divalproex ER 1,000 mg PO BID divalproex ER 250 mg PO BID docusate sodium (Colace) 100 mg PO DAILY 90 days haloperidol 5 mg PO BID ibuprofen 600 mg PO TID levothyroxine 175 mcg PO DAILY lithium carbonate 300 mg PO BID lithium carbonate 150 mg PO BID lithium carbonate 300 mg PO BID melatonin 9 mg PO BEDTIME PRN melatonin 3 mg PO BEDTIME PRN miscellaneous medical supply 1 ea miscellaneous DAILY 99 days mupirocin 2% 1 appl topical DAILY 30 days omeprazole 20 mg PO DAILY 90 days propranolol 40 mg PO BID propranolol ER 80 mg PO DAILY Tobacco use date assessed: 08/01/24 Dental Screening Dental Screen Date: 08/01/24 HPI Annual Exam HPI Details Patient is a 29-year-old male here today for routine annual physical Patient has a past medical history significant for mood disorder, hypothyroidism, cerebral palsy history of brain hemorrhage with left-sided hemiplegia, obstructive sleep apnea He presents today with long-term workers. Bipolar disorder/mood disorder: Patient followed by Psychiatry who manages all of his mental health medications. car worker reports patient's behavior mood has been fairly stable on current dose of his mental health medications. .. Obstructive sleep apnea: Most recent sleep study showing severe obstructive sleep apnea. He was to start CPAP machine on a daily basis though patient feels it is uncomfortable. He has been discussing this with his home care workers about using CPAP machine a nightly basis. .. Hypothyroidism: Continues on levothyroxine 175 mcg. Will continue to follow TSH to assure normal .. History brain hemangioma: According to patient's mother (on speaker phone during visit)--> patient has cerebral palsy and when at a young child did undergo brain surgery for a large hemangioma that resulted in Tyree being left with left-sided hemiplegia. .. Diabetes insipidus: Was followed by fruit farmer in [facility] and continues on desmopressin. VAccine: Utd with vaccines [facility] Medical History Hypothyroid Bipolar disorder Mood disorder Cerebral palsy Bipolar 1 disorder Chronic GERD Family History Paternal Grandmother No problems noted. Social History Housing: Assisted Living Facility (long-term ) Patient Tobacco Use Status: Never used Tobacco e-Cigarette/Vaping Use: Never Used service: No Current occupational status: disabled Cognitive needs: Yes Hearing needs: No Vision needs: No Questionnaire PHQ-9 Over the last 2 weeks, how often have you been bothered by any of the following problems? 1. Little interest or pleasure in doing things: not at all 2. Feeling down, depressed, or hopeless: not at all 3. Trouble falling or staying asleep, or sleeping too much: not at all 4. Feeling tired or having little energy: not at all 5. Poor appetite or overeating: not at all 6. Feeling bad about yourself - or that you are a failure or have let yourself or your family down: not at all 7. Trouble concentrating on things, such as reading the newspaper or watching television: not at all 8. Moving or speaking so slowly that other people could have noticed. Or the opposite - being so fidgety or restless that you have been moving around a lot more than usual: not at all 9. Thoughts that you would be better off or of hurting yourself in some way: not at all Total score: 0 Depression Screening Interpretation: Negative Depression Screening Done: Yes 69779 - PHQ-9 Billing: Yes Source: Developed by Drs. Francis Diop, Perla Mike, Jimenez Woods and colleagues, with an educational chelle from [employer]. Thrive Questionnaire Date Thrive assessed: 10/15/24 I am a: Patient What is your living situation today?: I have a steady place to live Within the past 12 months, did the food you bought not last and you didn't have the money to get more?: Never true Within the past 12 months, did you worry whether your food would run out before you got money to buy more?: Never true Do you have trouble paying for medicines?: No Do you have trouble getting transportation to medical appointments?: No Do you have trouble paying your heating and electricity bill?: No Do you have trouble taking care of your child, family member or friend?: No Do you have trouble with day-to-day activities such as bathing, preparing meals, shopping, managing finances, etc.?: No Are you currently unemployed and looking for a job?: No Are you interested in more education?: No Please select the resources that you would like help with: None Currently or been in a relationship where the following occur: No concerns reported THRIVE Score: 0 AUDIT C Alcohol Use Questionnaire (AUDIT-C) 1. How often do you have a drink containing alcohol?: Never 3. How often do you have six or more drinks on one occasion?: Never Total Score: 0 CORNELIO-7 AMB Questionnaire CORNELIO-7 Date CORNELIO - 7 assessed: 10/15/24 Feeling nervous, anxious, or on edge: 1 = Several days Not being able to stop or control worryin = Not at all Worrying too much about different things: 0 = Not at all Trouble relaxin = Not at all Being so restless that it is hard to sit still: 0 = Not at all Becoming easily annoyed or irritable: 0 = Not at all Feeling afraid as if something awful might happen: 0 = Not at all Total CORNELIO-7 score (0-4 normal; 5-9 mild; 10-14 moderate; 15-21 severe): 1 Source: Developed by Drs. Francis Diop, Perla Mike, Jimenez Woods and colleagues, with an educational chelle from [employer]. CORNELIO-7 Assessment Billing CORNELIO-7 Assessment Tool: CORNELIO-7 Assessment 84964 Review of Systems Const Denies body aches, Denies chills, Denies excessive sweating, Denies fatigue, Denies fever(s) and Denies headache(s) Eyes Denies blurry vision ENT Denies dysphagia, Denies vertigo, Denies dizziness, Denies headache(s), Denies hearing loss and Denies tinnitus Card Denies chest pain, Denies chest pain with activity, Denies syncope, Denies irregular heart rhythm and Denies dyspnea Resp Denies chest congestion, Denies cough, Denies hemoptysis, Denies dyspnea and Denies wheezing GI Denies abdominal pain, Denies melena, Denies hematochezia, Denies coffee ground emesis, Denies dysphagia, Denies diarrhea, Denies nausea and Denies vomiting Denies difficulty urinating, Denies dysuria, Denies urinary frequency, Denies urinary hesitancy and Denies urinary urgency Musc Denies arthralgias, Denies limited range of motion, Denies muscle cramps and Denies muscle weakness Skin/Breast Denies rash and Denies skin ulcer Neuro Denies Abnormal speech present, Denies confusion, Denies vertigo, Denies dizziness, Denies syncope, Denies headache(s), Denies memory loss and Denies seizure-like activity Psych Denies anxiety, Denies confusion, Denies depression, Denies memory loss, Denies panic attacks and Denies paranoia Endo Denies excessive sweating, Denies fatigue, Denies flushing, Denies polydipsia and Denies polyuria Favian/Lymph Denies easy bleeding and Denies easy bruising Aller/Immun Denies wheezing Physical exam (Primary Care) Vital Signs: Last Vital Signs Pulse 80 10/15/24 16:12 BP 112/68 10/15/24 16:12 Pulse Ox 95 10/15/24 16:12 Oxygen Delivery Method Room Air 10/15/24 16:12 BMI result Body Mass Index 45.0 BMI Assessment/Plan discussion: High BMI High, discussed plan: lifestyle, weight reduction, dietary and physical activity Tobacco/Smoking Status: Tobacco use Status Tobacco use date assessed 08/01/24 10/15/24 16:14 Patient Tobacco Use Status Never used Tobacco 10/15/24 16:14 e-Cigarette/Vaping Use Never Used 10/15/24 16:14 PHQ-9: PHQ-9 Score PHQ-9: Total score 0 10/15/24 16:47 Depression Screening Interpretation: Negative Thrive Assessment: Date of Thrive Assessment Date Thrive assessed 10/15/24 10/15/24 16:14 Currently or been in a relationship where the following occur: No concerns reported Const Other: Obese General: cooperative, comfortable, no acute distress, alert and awake; No confusion Nutritional Appearance: well nourished Orientation/consciousness: oriented to person, oriented to place, patient oriented x3 and No confusion HENMT Head: Yes normocephalic Ears: external ears normal and TM's normal bilaterally General nose exam: Normal nasal mucous membranes and turbinates present Face and sinus: No sinus tenderness Mouth: Normal oral and palatal mucosa present and tongue normal Teeth and gingiva: dentition normal and gingiva normal Throat: Yes posterior oropharynx normal, Yes tonsils normal and Yes uvula midline Eyes Conjunctivae: conjunctivae normal Sclerae: sclerae normal Pupils: Equal, round and reactive pupils present EOM: EOMs intact bilaterally Direct Ophthalmoscopy: No no photophobia Neck Neck: Yes no lymphadenopathy, No tender and Yes no JVD Thyroid: Thyroid normal Carotids: no bruits Chest Chest palpation & inspection: no tenderness Resp Effort & Inspection: normal respiratory effort, no audible wheezes, not labored and no stridor Auscultation: no crackles, no rales, no rhonchi and no wheezes Cardio Jugular venous distension: no JVD Rate: regular rate, not bradycardic and not tachycardic Rhythm: regular rhythm Heart sounds: no murmurs and normal S1 and S2 Bruits: no carotid bruits Peripheral pulses: Peripheral pulses 2+ throughout GI Inspection: Yes normal to inspection, No abdominal wall ecchymosis and No visible herniation Palpation (GI): Soft to palpation, nontender, no guarding, not rigid and No hepatosplenomegaly present Auscultation: normoactive bowel sounds General: Yes no CVA tenderness Back/Spine/Pelvis Back: no CVA tenderness and No back tenderness Cervical Spine: cervical ROM normal Thoracic/Lumbar Spine: thoracic and lumbar spine normal to inspection, straight leg raise negative bilaterally, No thoraco-lumbar ROM limited and No lumbar spinal tenderness Skin General skin exam: no rashes or lesions noted and dry skin Lesions: no lesions Rashes: no rashes Wounds: no wounds Neuro General: oriented to person, oriented to place, patient oriented x3, CN's II-XI intact bilaterally and No confusion Cranial nerves: Yes Equal, round and reactive pupils present and Yes Normal accommodation reflex present Cognition (Neuro): normal cognition Speech: No Abnormal speech present Gait exam (Neuro): Normal gait present Motor exam (neuro): 5/5 motor strength present throughout Extrem Right upper extremity: full ROM; no cyanosis Left upper extremity: full ROM; no cyanosis Right lower extremity: no edema Left lower extremity: no edema Psych Appearance: grossly normal Mental Status: mental status grossly normal Speech and movement: Normal speech and movement present Affect: normal affect Attitude: cooperative Thought process: Normal thought process present Coding Level of Care Code Est Pt Prev Care 18-39y([id number]) Diagnoses Annual physical exam Z00.00 Acquired hypothyroidism E03.9 Hypothyroidism type: acquired CHRISTOPHER (obstructive sleep apnea) G47.33 Left-sided hemiplegic cerebral palsy G80.8 Diabetes insipidus E23.2 Brain hemangioma D18.02 Class 3 obesity E66.813 Additional Codes CORNELIO-7 Assessment Billing - CORNELIO-7 Assessment Tool: CORNELIO-7 Assessment 47583 ([id number]) PHQ-9 - 36766 - PHQ-9 Billing: Yes ([id number]) Assessment & Plan Assessment & Plan (1) Annual physical exam: Code(s): Z00.00 - Encounter for general adult medical examination without abnormal findings Category: Medical Plan: As per HPI (2) Hypothyroid: Code(s): E03.9 - Hypothyroidism, unspecified Category: Medical Qualifiers: Hypothyroidism type: acquired Qualified Code(s): E03.9 - Hypothyroidism, unspecified Plan: Patient continues on 175 mcg of levothyroxine. Most recent TSH stable. Will continue to follow TSH to assure normal (3) CHRISTOPHER (obstructive sleep apnea): Code(s): G47.33 - Obstructive sleep apnea (adult) (pediatric) Category: Medical Plan: Patient does have pretty severe obstructive sleep apnea. Advised him that he should be using CPAP machine on a nightly basis to reduce any cardiovascular events in the future. He is somewhat apprehensive on using CPAP machine (4) Left-sided hemiplegic cerebral palsy: Code(s): G80.8 - Other cerebral palsy Category: Medical Plan: As per HPI patient has left-sided hemiplegia due to cerebral palsy secondary to a brain surgery as a child. (5) Diabetes insipidus: Code(s): E23.2 - Diabetes insipidus Category: Medical Plan: Patient continues on desmopressin, has followed by an fruit farmer in [place] (6) Brain hemangioma: Code(s): D18.02 - Hemangioma of intracranial structures Category: Medical Plan: As above (7) Class 3 obesity: Code(s): E66.813 - Obesity, class 3 Category: Medical Plan: Patient does understand his BMI is over 40 and we discuss the need to reduce soda intake and being more physically active
== END 2024-10-15 17:22 | disposition home or self-care (01) ==
LOC: HO.HMCH 16:01
PROVIDERS: PCP Physician Assistant; Visit Provider Physician Assistant
DX: Z00.00 Encounter for general adult medical examination without abnormal findings (principal); G80.8 Other cerebral palsy; Z68.42 Body mass index [BMI] 45.0-49.9, adult; E66.813 Obesity, class 3; E23.2 Diabetes insipidus; D18.02 Hemangioma of intracranial structures; E03.9 Hypothyroidism, unspecified; G47.33 Obstructive sleep apnea (adult) (pediatric)

== ENCOUNTER → 2024-10-15 16:00 | Outpatient (BNVA) | payer MEDICARE, MEDICAID, SELFPAY | PROVIDERS: PCP Physician Assistant; Visit Provider Physician Assistant | DX: Z00.00 Encounter for general adult medical examination without abnormal findings (principal); E03.9 Hypothyroidism, unspecified; G47.33 Obstructive sleep apnea (adult) (pediatric); G80.8 Other cerebral palsy; E23.2 Diabetes insipidus; E66.813 Obesity, class 3; Z68.45 Body mass index [BMI] 70 or greater, adult; Z71.3 Dietary counseling and surveillance | CPT/HCPCS: 96127; 99395 ==

== ENCOUNTER 2024-12-16 23:01 | Emergency (ER) | payer MEDICARE, MEDICAID, SELFPAY ==
--- NOTE | ~2024-12-16 | XR_ITS ---
CLINICAL HISTORY: fall, pain Right wrist three views Comparison: None Findings: No acute fracture or dislocation identified. No acute focal bony abnormality. No radiopaque foreign body noted. Impression: No acute bony abnormality This document has been electronically signed by: Jovi Nichols MD on 12/17/2024 00:35:07
[2024-12-16 23:08] VITALS: BP 120/80; BP 137/94; PULSE 68; PULSE 71; RESP 17; TEMP 36.7; O2SAT 96; O2SAT 97; BMI 42.2
[2024-12-16 23:13] VITALS: BP 123/79; PULSE 69; RESP 16; TEMP 36.7; O2SAT 96
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
[2024-12-17 01:58] VITALS: BP 110/66; PULSE 72; RESP 14; TEMP 36.9; O2SAT 95
[2024-12-17 02:17] VITALS: BP 110/66; PULSE 72; RESP 14; TEMP 36.9; O2SAT 95
== END 2024-12-17 02:19 | disposition home or self-care (01) ==
PROVIDERS: Emergency Provider Emergency Medicine
DX: S40.021A Contusion of right upper arm, initial encounter (principal); S60.221A Contusion of right hand, initial encounter; X58.XXXA Exposure to other specified factors, initial encounter; W19.XXXA Unspecified fall, initial encounter; Y93.9 Activity, unspecified; Y92.199 Unspecified place in other specified residential institution as the place of occurrence of the external cause; Y99.8 Other external cause status; Z79.899 Other long term (current) drug therapy
CPT/HCPCS: 73110; 99283; 99284

== ENCOUNTER → 2024-12-16 23:39 | Outpatient (BNV) | payer MEDICARE, MEDICAID, SELFPAY | PROVIDERS: Emergency Provider Emergency Medicine; Visit Provider Radiology Diagnostic Radiology | DX: M25.531 Pain in right wrist (principal); W19.XXXA Unspecified fall, initial encounter | CPT/HCPCS: 73110 ==

== ENCOUNTER 2024-12-30 13:35 | Outpatient (AMB) | payer MEDICARE, MEDICAID, SELFPAY ==
--- NOTE | 2024-12-30 12:43 | A.OFFVIS_ITS ---
Vital Signs 12/30/24 13:42 Height 5 ft 5 in Weight 254 lb 10.142 oz BMI 42.4 BP 128/82 Blood Pressure Location Rt brachial Position Sitting Pulse 77 Pulse Source Pulse Oximeter Pulse Oximetry (%) 96 Oxygen Delivery Method Room Air Intake Visit Reasons: Obstructive sleep apnea Allergies No Known Allergies Allergy (Verified 12/30/24 13:47) HPI HPI Obstructive sleep apnea: Details: Tyree is a pleasant 29 year old male, never smoker, with underlying cerebral palsy with left sided hemiplegia, GERD, Bipolar and hypothyroidism. Today he is accompanied by two staff members from correction. He was referred by PCP after recent home sleep study 09/2024 revealed severe CHRISTOPHER with mild nocturnal hy poxemia. He was initially sent for home PSG due to witnessed apneas and daytime fatigue. He does report having a CPAP machine in the past, unclear how long ago as patient poor historian. He also notes that therapy was discontinued due to his machine being recalled. He did state that he had difficulties tolerating therapy previously, but is willing to reattempt CPAP therapy. According to chart, it appears PCP sent order to [facility] but has yet to receive any information regarding delivery date. He currently denies any respiratory symptoms. FORMERLY [facility], [facility] Medical History Hypothyroid Bipolar disorder Mood disorder Cerebral palsy Bipolar 1 disorder Chronic GERD Family History Paternal Grandmother No problems noted. Social History Housing: Assisted Living Facility (correction ) Patient Tobacco Use Status: Never used Tobacco e-Cigarette/Vaping Use: Never Used service: No Current occupational status: disabled Cognitive needs: Yes Hearing needs: No Vision needs: No Review of Systems Const All systems reviewed & are unremarkable except as noted in HPI and below Reports daytime sleepiness, Reports difficulty sleeping, Reports snoring and Reports stops breathing during sleep ENT Reports Normal hearing present Resp Reports snoring Neuro Reports Normal hearing present Physical Exam Vital Signs: Last Vital Signs Pulse 77 12/30/24 13:42 BP 128/82 12/30/24 13:42 Pulse Ox 96 12/30/24 13:42 Oxygen Delivery Method Room Air 12/30/24 13:42 BMI result Body Mass Index 42.4 Const General: cooperative, healthy appearing, comfortable, no acute distress, well developed and alert Nutritional Appearance: obese Orientation/consciousness: patient oriented x3 Limitations: no limitations HEENT Head: Yes normal to inspection, Yes normocephalic and Yes atraumatic Ears: hearing grossly normal bilaterally and external ears normal Eyes General: appearance normal, both eyes and all related structures Eyelids: Yes eyelids normal Sclerae: sclerae normal EOM: EOMs intact bilaterally Neck Neck: Yes normal visual inspection and Yes no lymphadenopathy Lymphatic: no lymphadenopathy noted Chest Chest palpation & inspection: normal inspection of the chest Resp Effort & Inspection: normal respiratory effort, able to speak in complete sentences, no audible wheezes, no cough, no stridor, not tachypneic, no tripod positioning and no use of accessory muscles Auscultation: clear to auscultation bilaterally Cardio Jugular venous distension: no JVD Rate: regular rate Rhythm: regular rhythm Skin Other: warm, dry General skin exam: no rashes or lesions noted Neuro General: patient oriented x3 Cranial nerves: Yes Normal hearing present Extrem Other: left sided hemiplegia General: Yes normal to inspection, Yes capillary refill normal, Yes no clubbing, cyanosis or edema and Yes no pedal edema Psych Appearance: grossly normal and well kempt Mental Status: mental status grossly normal Speech and movement: Clear speech present and Slowed speech present (Psych) Affect: normal affect Attitude: cooperative Thought process: Normal thought process present Thought content: Normal thought content present Insight: Fair insight present (Psych) Judgement: Fair judgement present (Psych) Assessment & Plan Assessment & Plan (1) Severe obstructive sleep apnea: Code(s): G47.33 - Obstructive sleep apnea (adult) (pediatric) Category: Medical (2) Nocturnal hypoxemia: Code(s): G47.34 - Idiopathic sleep related nonobstructive alveolar hypoventilation Category: Medical Plan Reviewed sleep study results with patient which revealed an AHI of 51, mild nocturnal hypoxemia <88% 33 minutes. Since patient is quite symptomatic, an order to start CPAP therapy for APAP mode with pressure settings of 6-20 cmH20 was ordered by PCP and sent to [facility]. Will send supply order to [employer] to obtain access to monitor compliance and benefits. Sleep hygiene education reviewed. He is aware if there are any issues with the mask or CPAP machine, he will call the DME company. Once established on CPAP therapy, will send for overnight oximetry to ensure resolution of nocturnal hypoxemia with CPAP use. All questions were answered and patient is in agreement of plan. Will follow up in 10-12 weeks or sooner if needed. Coding Level of Care Code New Pt Level 3 (11907) Diagnoses Severe obstructive sleep apnea G47.33 Nocturnal hypoxemia G47.34
[2024-12-30 13:42] VITALS: BP 128/82; PULSE 77; O2SAT 96; BMI 42.4
--- OUTSIDE RECORDS SUMMARY | 2024-12-30 15:21 | XMS_ITS | Clinical Summary ---
Author Organization 175 [facility] Address [address] [place] [address] Phone Care Team Providers Care Small Craft Operator Name Role Phone Austin Jensen Primary Care Provider Medications No known medications Encounters Date Type Department Care Team Description 12/03/2024 10:15 AM EDT Office Visit Orthopedic Surgery [facility] [address] [address] Fer Hernandez DPM Corns and callosities (Primary Dx); Hallux rigidus of right foot; Fissure in skin from Last 3 Months [...] Care Team (Late st Contact Info) Description 03/05/2025 10:30 AM EDT Office Visit Orthopedic [facility] [address] [address] Fer Hernandez DPM [address] [address] Health Maintenance Due Date Last Done Comments COVID-19 Vaccine ( season) 2024 06/05/2021, 08/29/2020, 08/08/2020 Cholesterol Screening (Lipid Panel) 07/08/2024 Depression Screening 07/08/2024 HIV Screening 07/08/2024 Hepatitis C Screening 07/08/2024 Medicare Annual Wellness Visit 07/08/2024 Social Influencers of Health Screening 07/08/2024 Influenza Vaccine (Season Ended) 2025 09/06/2022, 04/16/2021, 06/16/2020, Additional history exists DTaP,Tdap,and Td Vaccines (8 - Td or [...] age to complete this topic Meningococcal B Vaccine Aged Out No l onger eligible based on patient's age to complete this topic RSV Immunization Patients Under 20 months Aged Out No longer eligible based on patient's age to complete this topic Varicella Vaccines Aged Out No longer eligible based on patient's age to complete this topic Insurance MEDICARE MEDICAID - [place] Care Teams Small Craft Operator Relationship Specialty Start Date End Date Austin Jensen PA [address] [place] [address] PCP - General Physician Hand Glove Cleaner 07/08/24
== END 2024-12-30 14:17 | disposition home or self-care (01) ==
LOC: HO.HPS 13:36
PROVIDERS: PCP Physician Assistant; Visit Provider Nurse Practitioner Family
DX: G47.33 Obstructive sleep apnea (adult) (pediatric) (principal); G47.34 Idiopathic sleep related nonobstructive alveolar hypoventilation
CPT/HCPCS: 99203

== ENCOUNTER → 2024-12-30 13:35 | Outpatient (BNVA) | payer MEDICARE, MEDICAID, SELFPAY | PROVIDERS: PCP Physician Assistant; Visit Provider Nurse Practitioner Family | DX: G47.33 Obstructive sleep apnea (adult) (pediatric) (principal); G47.34 Idiopathic sleep related nonobstructive alveolar hypoventilation | CPT/HCPCS: 99202 ==

== ENCOUNTER 2025-01-27 10:56 | Outpatient (AMB) | payer MEDICARE, MEDICAID, SELFPAY ==
--- NOTE | 2025-01-27 11:03 | A.OFFPC_ITS ---
Vital Signs 01/27/25 11:04 Height 5 ft 5 in Weight 253 lb 8.505 oz BMI 42.2 BP 108/70 Blood Pressure Location Lt brachial Position Sitting Pulse Source Pulse Oximeter Intake Visit Reasons: follow up increased incontinence Certified Low Vision Therapist Required: No Accompanied by: Self / Same As Patient Allergies No Known Allergies Allergy (Verified 01/27/25 11:21) Medication List - Last Reconciled 01/27/25 by Austin Jensen PA-C acetaminophen 500 mg PO BID PRN 30 days benztropine 1 mg PO BID CPAP (CPAP Machine/Device) Need for auto PAP 6 to 20 cm of water [CPAP heated humidifier As directed] desmopressin mg PO divalproex ER 1,000 mg PO BID divalproex ER 250 mg PO BID docusate sodium (Colace) 100 mg PO DAILY 90 days haloperidol 5 mg PO BID ibuprofen 600 mg PO TID levothyroxine 175 mcg PO DAILY lithium carbonate 300 mg PO BID lithium carbonate 150 mg PO BID lithium carbonate 300 mg PO BID melatonin 9 mg PO BEDTIME PRN melatonin 3 mg PO BEDTIME PRN miscellaneous medical supply 1 ea miscellaneous DAILY 99 days mupirocin 2% 1 appl topical DAILY 30 days omeprazole 20 mg PO DAILY 90 days propranolol 40 mg PO BID propranolol ER 80 mg PO DAILY Tobacco use date assessed: 01/27/25 Dental Screening Dental Screen Date: 01/27/25 Did you have a dental visit in the last 12 months?: Yes Did you have a dental problem in the last 6 months where you did not have access to dental care?: No Was dental information given to patient?: Yes HPI follow up increased incontinence HPI Details Patient is a 29-year-old male here today for follow-up visit.. Patient has a past medical history significant for mood disorder, hypothyroidism, diabetes insipidus, cerebral palsy history of brain hemorrhage with left-sided hemiplegia, obstructive sleep apnea He presents today with assisted workers. Concern--> Patient in assisted workers explaining that Tyree continues to have urinary incontinence though is unclear if this is behavioral versus functional type of urinary incontinence. The condition has persisted for several months, with incidents occurring both nocturnally and diurnally. The patient experiences difficulty reaching the bathroom in time, occasionally resulting in accidents while at the toilet. .. [facility] Medical History Hypothyroid Bipolar disorder Mood disorder Cerebral palsy Bipolar 1 disorder Chronic GERD Family History Paternal Grandmother No problems noted. Social History Housing: Assisted Living Facility (assisted ) Patient Tobacco Use Status: Never used Tobacco e-Cigarette/Vaping Use: Never Used service: No Current occupational status: disabled Cognitive needs: Yes Hearing needs: No Vision needs: No Questionnaire Thrive Questionnaire Date Thrive assessed: 01/27/25 I am a: Patient What is your living situation today?: I have a steady place to live Within the past 12 months, did the food you bought not last and you didn't have the money to get more?: Never true Within the past 12 months, did you worry whether your food would run out before you got money to buy more?: Never true Do you have trouble paying for medicines?: No Do you have trouble getting transportation to medical appointments?: No Do you have trouble paying your heating and electricity bill?: No Do you have trouble taking care of your child, family member or friend?: No Do you have trouble with day-to-day activities such as bathing, preparing meals, shopping, managing finances, etc.?: No Are you currently unemployed and looking for a job?: No Are you interested in more education?: No Please select the resources that you would like help with: None Currently or been in a relationship where the following occur: No concerns reported THRIVE Score: 0 CORNELIO-7 AMB Questionnaire CORNELIO-7 Date CORNELIO - 7 assessed: 01/27/25 Source: Developed by Drs. Francis Diop, Perla Mike, Jimenez Woods and colleagues, with an educational chelle from [employer]. Review of Systems Const Denies headache(s) Eyes Denies loss of vision ENT Denies vertigo, Denies dizziness, Denies headache(s) and Denies sore throat Card Denies chest pain, Denies leg edema and Denies lightheadedness Resp Denies cough, Denies hemoptysis and Denies wheezing GI Denies abdominal pain, Denies melena, Denies constipation, Denies diarrhea and Denies vomiting Denies dysuria, Denies urinary frequency, Reports urinary incontinence and Denies urinary urgency Musc Denies arthralgias, Denies joint swelling, Denies numbness and Denies tingling Neuro Denies Abnormal speech present, Denies behavioral changes, Denies vertigo, Denies dizziness, Denies headache(s), Denies loss of vision, Denies memory loss, Denies numbness and Denies tingling Psych Denies anxiety, Denies behavioral changes, Denies depression, Denies memory loss and Denies panic attacks Favian/Lymph Denies easy bleeding and Denies easy bruising Aller/Immun Denies wheezing Physical exam (Primary Care) Vital Signs: Last Vital Signs BP 108/70 01/27/25 11:04 BMI result Body Mass Index 42.2 Tobacco/Smoking Status: Tobacco use Status Tobacco use date assessed 01/27/25 01/27/25 11:10 Patient Tobacco Use Status Never used Tobacco 01/27/25 11:10 e-Cigarette/Vaping Use Never Used 01/27/25 11:10 Thrive Assessment: Date of Thrive Assessment Date Thrive assessed 01/27/25 01/27/25 11:10 Currently or been in a relationship where the following occur: No concerns reported Const General: healthy appearing, no acute distress, alert and awake Nutritional Appearance: well nourished Orientation/consciousness: oriented to person, oriented to place and oriented to time HENMT Ears: TM's normal bilaterally General nose exam: Normal nasal mucous membranes and turbinates present Eyes Conjunctivae: conjunctivae normal Sclerae: sclerae normal Pupils: Equal, round and reactive pupils present Neck Neck: Yes no lymphadenopathy and Yes no JVD Thyroid: Thyroid normal Carotids: no bruits Resp Effort & Inspection: normal respiratory effort and not tachypneic Auscultation: no crackles, no rales, no rhonchi and no wheezes Cardio Rate: regular rate Rhythm: regular rhythm Heart sounds: no murmurs and normal S1 and S2 GI Palpation (GI): Soft to palpation, nontender, no hepatomegaly and no splenomegaly Auscultation: normal bowel sounds Skin General skin exam: no rashes or lesions noted and dry skin Neuro General: oriented to person, oriented to place and oriented to time Cranial nerves: Yes Equal, round and reactive pupils present Speech: No Abnormal speech present Gait exam (Neuro): Normal gait present Motor exam (neuro): no tremor noted Extrem Right upper extremity: full ROM Left upper extremity: full ROM Right lower extremity: full ROM; no edema Left lower extremity: full ROM; no edema Psych Mental Status: mental status grossly normal Speech and movement: Normal speech and movement present Affect: normal affect Attitude: cooperative Thought process: Normal thought process present Coding Level of Care Code Est Pt Level 3 (52836) Diagnoses Stress incontinence of urine N39.3 Urinary Incontinence type: stress incontinence Assessment & Plan Assessment & Plan (1) Urinary incontinence: Code(s): R32 - Unspecified urinary incontinence Category: Medical Qualifiers: Urinary Incontinence type: stress incontinence Qualified Code(s): N39.3 - Stress incontinence (female) (male) Plan: The management plan includes behavioral strategies such as scheduled voiding and the use of protective garments during nighttime to manage urinary incontinence. Referral to a urologist is considered if a urological etiology is suspected. A bladder ultrasound is ordered to exclude any structural abnormalities. Orders: Orders US bladder Today N39.3 - Stress incontinence (female) (male) UA CC w/rflx Micro + Cult Today R30.0 - Dysuria, R35.0 - Frequency of micturition
[2025-01-27 11:04] VITALS: BP 108/70; BMI 42.2
--- OUTSIDE RECORDS SUMMARY | 2025-01-27 11:54 | XMS_ITS | Encounter Summary ---
Author Organization [facility] Address [address] [place] [address] Care Team Providers Care Golf Ball Trimmer Name Role Phone Austin Jensen Primary Care Provider [phone] Encounter Details Date Type Department Care Team (Late st Contact Info) Description 10/19/2017 myChart Message [facility] [address] [place] [address] Roxy Andrew MD [address] [place] [address] RE: Visit Follow-Up Question Social History Tobacco Use Types Packs/Day Years Used Date Smoking Tobacco: Never Smokeless Tobacco: Never Comments:: Alcohol Use Standard Drinks/Week Comments No 0 (1 standard drink = 0.6 oz pur e alcohol) Sex and Gender Information Value Date Recorded Sex Assigned at Male 07/29/2019 10:24 PM EST Legal Sex Male 2:43 AM EDT Gender Identity Male 07/29/2019 10:24 PM EST Sexual Orientation Straight 07/29/2019 10 :24 PM EST documented as of this encounter Plan of Treatment Not on file documented as of this encounter Visit Diagnoses Not on filedocumented in this encounter Additional Health Concerns Infection Onset Date Last Indicated Resolved Time 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 COVID-19 - Suspected infection 08/02/2020 08/02/2020 08/03/2020 6:42 AM EST R/O Respiratory Virus Infection 08/11/2022 3 04/14/2023 4:05 AM EDT R/O Influenza 08/11/2022 08/11/2022 04/14/2023 4:0 5 AM EDT COVID-19 - Suspected infection 08/11/2022 08/11/2022 04/14/2023 4:05 AM EDT R/O Respiratory Virus Infection 10/08/2022 04/14/2023 5:04 AM EDT R/O Influenza 10/08/2022 10/08/2022 04/14/2023 5:0 4 AM EDT COVID-19 - Suspected infection 10/08/2022 10/08/2022 04/14/2023 5:04 AM EDT documented as of this encounter Care Teams Golf Ball Trimmer Relationship Specialty Start Date End Date Austin Jensen PA [address] [place] [id number] PCP - General 04/11/24 documented as of this encounter
--- OUTSIDE RECORDS SUMMARY | 2025-01-27 11:54 | XMS_ITS | Clinical Summary ---
Author Organization 175 [facility] Address [address] [place] [address] Phone Care Team Providers Care Substance Abuse Therapist Name Role Phone Austin Jensen Primary Care Provider [phone] Medications No known medications Encounters Date Type Department Care Team Description 12/03/2024 10:15 AM EDT Office Visit Orthopedic Surgery [facility] [address] [address] Fer Hernandez DPM Corns and [...] 03/05/2025 10:30 AM EDT Office Visit Orthopedic [facility] [address] [address] Fer Hernandez DPM [address] [address] Health Maintenance Due Date Last Done Comments [...] Insurance MEDICARE MEDICAID - [place] Care Teams Substance Abuse Therapist Relationship Specialty Start Date End Date Austin Jensen PA [address] [place] [address] PCP - General Physician Anthropological Linguist 07/08/24
== END 2025-01-27 11:45 | disposition home or self-care (01) ==
LOC: HO.HMCH 10:56
PROVIDERS: PCP Physician Assistant; Visit Provider Physician Assistant
DX: N39.3 Stress incontinence (female) (male) (principal)

== ENCOUNTER → 2025-01-27 10:56 | Outpatient (BNVA) | payer MEDICARE, MEDICAID, SELFPAY | PROVIDERS: PCP Physician Assistant; Visit Provider Physician Assistant | DX: N39.3 Stress incontinence (female) (male) (principal) | CPT/HCPCS: 99212 ==

== ENCOUNTER 2025-04-08 14:32 | Outpatient (REF) | payer MEDICARE, MEDICAID, SELFPAY ==
--- OUTSIDE RECORDS SUMMARY | 2025-04-08 18:15 | XMS_ITS | Encounter Summary ---
Author Organization [facility] Address [address] [place] [address] Care Team Providers Care Highway Painter Name Role Phone Austin Jensen Primary Care Provider [phone] Reason for Visit * Reason Onset Date Comments PAC Labs Needed 05/10/2023 PAC Appt Request - Established 05/10/2023 Encounter Details Date Type Department Care Team (Late st Contact Info) Description 05/10/2023 Telephone [facility] [address] [place] [phone] Telephone Intake, Staff PAC Labs Needed; PAC Appt Request - Established Social History Tobacco Use Types Packs/Day Years Used Date Smoking Tobacco: Never Smokeless Tobacco: Never Comments:: Alcohol Use Standard Drinks/Week Comments Never 0 (1 standard drink = 0.6 oz pur e alcohol) Sex and Gender Information Value Date Recorded Sex Assigned at Male 07/29/2019 10:24 PM EST Legal Sex Male 2:43 AM EDT Gender Identity Male 07/29/2019 10:24 PM EST Sexual Orientation Straight 07/29/2019 10 :24 PM EST Occupation Industry Job Start Date Job End Date disabled Not on file Not on file Not on file documented as of this encounter Miscellaneous Notes * Telephone Encounter - Jaqueline Duran - 05/11/2023 9:57 AM EDT Scheduled 05/17 * Telephone Encounter - Tessa Wilhelm - 05/10/2023 11:23 AM EDT Patients warehouse clerk called in regards to appt for 05/24 it was cancelled I tried to reschedule appt with dr. 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
--- OUTSIDE RECORDS SUMMARY | 2025-04-08 18:15 | XMS_ITS | Encounter Summary ---
Author Organization [facility] Address [address] [place] [address] Care Team Providers Care Forming Department End Finder Name Role Phone Austin Jensen Primary Care Provider [phone] Encounter Details Date Type Department Care Team (Late st Contact Info) Description 10/19/2017 myChart Message [facility] [address] [place] [address] Roxy Andrew MD [address] [place] [address] RE: Visit Follow-Up Question Social History Tobacco [...] documented as of this encounter Care Teams Forming Department End Finder Relationship Specialty Start Date End Date Austin Jensen PA [address] [place] [id number] PCP - General 04/11/24 documented as of this encounter
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
--- OUTSIDE RECORDS SUMMARY | 2025-04-08 18:15 | XMS_ITS | Encounter Summary ---
Author Organization [facility] Address [address] [place] [address] Care Team Providers Care Physician Locums Urgent Care Name Role Phone Austin Jensen Primary Care Provider [phone] Encounter Details Date Type Department Care Team (Late st Contact Info) Description 08/31/2022 myChart Message [facility] [address] [place] [address] Roxy Andrew MD [address] [place] [address] MM Neurological Assessment Social History Tobacco Use Types Packs/Day Years [...] on file documented as of this encounter Plan of Treatment Not on file documented as of this encounter Visit Diagnoses Not on filedocumented in this encounter Additional Health Concerns Infection Onset Date Last Indicated Resolved Time 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 R/O Respiratory Virus Infection 08/11/2022 3 04/14/2023 [...] documented as of this encounter Care Teams Physician Locums Urgent Care Relationship Specialty Start Date End Date Austin Jensen PA [address] [place] [id number] PCP - General 04/11/24 documented as of this encounter
--- OUTSIDE RECORDS SUMMARY | 2025-04-08 18:15 | XMS_ITS | Encounter Summary ---
Author Organization [facility] Address [address] [place] [address] Care Team Providers Care Facility Sales And Admin Name Role Phone Austin Jensen Primary Care Provider [phone] Encounter Details Date Type Department Care Team (Late st Contact Info) Description 08/31/2022 Azimuth Systemshart Message [facility] [address] [place] [address] Roxy Andrew MD [address] [place] [address] Tyree Brewster MRI Social History Tobacco Use Types Packs/Day Years [...] documented as of this encounter Care Teams Facility Sales And Admin Relationship Specialty Start Date End Date Austin Jensen PA [address] [place] [id number] PCP - General 04/11/24 documented as of this encounter
--- OUTSIDE RECORDS SUMMARY | 2025-04-08 18:15 | XMS_ITS | Clinical Summary ---
Author Organization [facility] Address [address] [place] [address] Phone Care Team Providers Care Glaciologist Name Role Phone Austin Jensen Primary Care Provider Medications No known medications Encounters Date Type Department Care Team Description 03/05/2025 10:30 AM EDT Office Visit Orthopedic Surgery [facility] [address] [phone] Fer Hernandez DPM Corns and [...] Concentration - - Weight 118 kg (260 lb 2.3 oz) 03/05/2025 10:18 A M EDT Height 167.6 cm (5' 5.98 ) 03/05/2025 10:18 AM E DT Body Mass Index 42.01 03/05/2025 10:18 AM EDT Plan of Treatment Upcoming Encounters Date Type Department Care Team (Late st Contact Info) Description 06/09/2025 1:45 PM EST Office Visit Orthopedic Surgery [facility] [address] [phone] Fer Hernandez DPM [address] [phone] Health Maintenance Due Date Last Done Comments Cholesterol Screening (Lipid Panel) 07/08/2024 HIV Screening 07/08/2024 Hepatitis C Screening 07/08/2024 Medicare Annual Wellness Visit 07/08/2024 Social Influencers of Health Screening 07/08/2024 Depression Screening 07/24/2024 Hypertension/CHF/CAD Annual BMP Blood Test 03/05/2025 10/14/2022 COVID-19 Vaccine ( season) 2025 06/05/2021, 08/29/2020, 08/08/2020 Influenza Vaccine (#1) 2025 , 04/16/2021, 06/16/2020, Additional history exists DTaP,Tdap,and Td Vaccines (9 - Td or Tdap) 07/22/2031 07/22/2021, 07/20/2021, 05/11/2012, Additional history exists Hepatitis B Vaccines Completed 1994, 1994, 1994 HIB Vaccines Completed 05/09/1995, 07/25, 1994, Additional history exists MMR Vaccines Completed 03/27/1998, 05/09/1995 IPV Vaccines Completed 04/02/1999, 07/25, 1994, Additional history exists Meningococcal ACWY Vaccine Aged Out 06/03/2013 N o longer eligible based on patient's age to complete this topic Pneumococcal Vaccine: Pediatrics (0 to 5 Years) and At-Risk Patients (6 to 49 Years) Aged Out 04/16/2015 No longer eligible [...] Insurance MEDICARE MEDICAID - [place] Care Teams Glaciologist Relationship Specialty Start Date End Date Austin Jensen PA [address] [place] [phone] PCP - General Physician Hvac Mechanic 07/08/24
--- OUTSIDE RECORDS SUMMARY | 2025-04-08 18:15 | XMS_ITS | Encounter Summary ---
Author Organization [facility] Address [address] [place] [address] Care Team Providers Care Midwife Name Role Phone Austin Jensen Primary Care Provider [phone] Reason for Visit * Reason Onset Date Comments PAC RX Refill 05/11/2023 Encounter Details Date Type Department Care Team (Late st Contact Info) Description 05/11/2023 Telephone [facility] [address] [place] [phone] Telephone Intake, Staff PAC RX Refill Social History Tobacco Use Types Packs/Day Years [...] encounter Miscellaneous Notes * Telephone Encounter - Tessa Wilhelm - 05/11/2023 2:05 PM EDT Patient care proxy called stating that the patient needs all neuro medications filled documented in this encounter Plan of Treatment Not on file documented as of this encounter Visit Diagnoses Not on filedocumented in this encounter Additional Health Concerns Infection Onset Date Last Indicated Resolved Time 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 documented as of this encounter Care Teams Midwife Relationship Specialty Start Date End Date Austin Jensen PA [address] [place] [phone] PCP - General 04/11/24 documented as of this encounter
== END 2025-04-08 14:33 | disposition home or self-care (01) ==
LOC: HO.US 14:32
PROVIDERS: PCP Physician Assistant; Visit Provider Physician Assistant
DX: Z13.89 Encounter for screening for other disorder (principal)

== ENCOUNTER 2025-05-27 12:29 | Outpatient (REF) | payer MEDICARE, MEDICAID, SELFPAY ==
--- OUTSIDE RECORDS SUMMARY | 2025-05-24 12:30 | XMS_ITS | Encounter Summary ---
Author Organization [facility] Address [address] [place] [address] Phone Care Team Providers Care Numerical Control Nesting Operator Name Role Phone Austin Jensen Primary Care Provider + Reason for Visit * Reason Comments Rash Skin irritation unde r L Axilla Encounter Details Date Type Department Care Team (Late st Contact Info) Description 05/24/2025 1:30 PM EDT Office Visit [facility] [address] [address] Soumya Newsome CNP [address] [place] [address] [email or web address] Candidiasis of skin (Primary Dx) Social History Tobacco Use Types Packs/Day Years Used Date Smoking Tobacco: Never Assessed Education Answer Date Recorded Are you interested in more education? Not on wm e 05/24/2025 Are you concerned about learning? Not on file 05/24/2025 No 05/24/2025 No 05/24/2025 Digital Access Answer Date Recorded No 05/24/2025 No 05/24/2025 Reliable internet access at home? Not on file 05/24/2025 Device with a working camera? Not on file Sex and Gender Information Value Date Recorded Sex Assigned at Male 05/24/2025 1:31 PM EDT Legal Sex Male 1:27 PM EDT Gender Identity Male 05/24/2025 1:31 PM EDT Sexual Orientation Not on file documented as of this encounter Last Filed Vital Signs Vital Sign Reading Time Taken Comments Blood Pressure 109/75 05/24/2025 2:36 PM EDT Pulse 71 05/24/2025 2:36 PM EDT Temperature 37 C (98.6 F) 05/24/2025 2:36 PM EDT Respiratory Rate 16 05/24/2025 2:36 PM EDT Oxygen Saturation 97% 05/24/2025 2:36 PM EDT Inhaled Oxygen Concentration - - Weight - - Height - - Body Mass Index - - documented in this encounter Progress Notes * Soumya Newsome CNP - 05/24/2025 1:30 PM EDT Images from the original note were not included. Subjective: Patient ID: Tyree Brewster is a 30 y.o. male. 30-year-old male patient who resides in prison presents with smooth and burr worker composites- Myra. Myra states rash was noted by staff during daily shower today. Patient denies any itch or pain. Patient does note that he sweats a lot. No fever, chills or sweats Review of Systems Constitutional: Negative for chills, diaphoresis, fatigue and fever. Allergic/Immunologic: Negative for immunocompromised state. Skin: Positive for persistent rash (under left arm). Musculoskeletal: Negative for joint pain and myalgias. Vitals: 05/24/25 1436 BP: 109/75 BP Location: Right arm Patient Position: Sitting Cuff Size: Large Pulse: 71 Resp: 16 Temp: 37 ??C (98.6 ??F) TempSrc: Oral SpO2: 97% Objective: Physical Exam Vitals and nursing note reviewed. Constitutional: General: He is not in acute distress. Appearance: Normal appearance. He is obese. He is not ill-appearing, toxic- appearing or diaphoretic. HENT: Head: Normocephalic and atraumatic. Pulmonary: Effort: Pulmonary effort is normal. Skin: General: Skin is warm and dry. Capillary Refill: Capillary refill takes less than 2 seconds. Findings: Erythema and rash present. No abscess. Rash is not crusting, macular, nodular, papular orscaling. Nails: There is no clubbing. Comments: Patient has congenital defect of the left arm He does have shoulder range of motion but holds arm next to body There is large oval shaped red irritated rash that matches from axilla to upper inner left arm where skin touches Neurological: Mental Status: He is alert and oriented to person, place, and time. Psychiatric: Mood and Affect: Mood normal. No results found for this visit on 05/24/25. Procedure: Procedures Assessment/Plan: Diagnosis Plan 1. Candidiasis of skin Assessment and Plan: 30-year-old male patient who resides in prison presents with smooth and burr worker composites-Myra [facility] staff member noted rash under the left arm during daily shower Patient denies any itch or pain Exam is consistent with axillary candidiasis-prescription for Lotrisone sent to pharmacy for patient to use twice a day Reviewed with smooth and burr worker composites to have patient change shirt whenever excessively sweaty, to use Lotrisone cream as supplied and to try to separate the skin using Telfa or other nonirritating material under the arm Paperwork is signed, scanned and returned to [facility] documented in this encounter Plan of Treatment Not on file documented as of this encounter Visit Diagnoses Diagnosis Candidiasis of skin- Primary Candidiasis of skin and nails documented in this encounter Care Teams Numerical Control Nesting Operator Relationship Specialty Start Date End Date Austin Jensen PA [address] [place] [phone] PCP - General Physician Oil And Gas Drafter 05/24/25 documented as of this encounter Additional Source Comments The information contained in this document represents components of the legal health record. It is not the complete legal health record.[facility]
--- NOTE | ~2025-05-27 | US_ITS ---
CLINICAL HISTORY: N39.3 - Stress incontinence (female) (male) US bladder Comparison: None provided Findings: The urinary bladder is unremarkable. Prevoid volume 293 mL. Post void volume 279 mL. Neither ureteral jet visualized. Impression: Postvoid residual 279 mL This document has been electronically signed by: Jovi Nichols MD on 05/27/2025 20:19:05
--- OUTSIDE RECORDS SUMMARY | 2025-05-27 15:13 | XMS_ITS | Encounter Summary ---
Author Organization [facility] Address [address] [place] [address] Care Team Providers Care Veneer Cutter Name Role Phone Austin Jensen Primary Care Provider [phone] Encounter Details Date Type Department Care Team (Late st Contact Info) Description 08/31/2022 myChart Message [facility] [address] [place] [address] Roxy Andrew MD [address] [place] [address] MM Neurological Assessment Social History Tobacco Use [...] documented as of this encounter Care Teams Veneer Cutter Relationship Specialty Start Date End Date Austin Jensen PA [address] [place] [id number] PCP - General 04/11/24 documented as of this encounter
--- OUTSIDE RECORDS SUMMARY | 2025-05-27 15:13 | XMS_ITS | Clinical Summary ---
Author Organization [facility] Address [address] [place] [address] Phone Care Team Providers Care Sweet Dough Mixer Name Role Phone Austin Jensen Primary Care Provider + Allergies No known active allergies Medications docusate sodium (COLACE) 100 MG capsule 5 Active levothyroxine (SYNTHROID, LEVOTHROID) 175 MCG tablet 5 Active omeprazole (PRILOSEC) 20 MG capsule 5 Active ondansetron (ZOFRAN-ODT) 8 MG disintegrating tablet 5 Active benztropine (COGENTIN) 1 MG tablet 5 Active divalproex (DEPAKOTE ER) 250 MG ER 24 hr tablet 5 Active haloperidoL (HALDOL) 5 MG tablet 5 Active lithium carbonate 150 mg capsule 5 Active lithium carbonate 300 MG capsule 5 Active melatonin 3 mg Tab 5 Active propranoloL (INDERAL LA) 80 mg 24 hr capsule 5 Active divalproex (DEPAKOTE ER) 500 MG ER 24 hr tablet 5 Active desmopressin (DDAVP) 0.2 MG tablet 5 Active clotrimazole-betam ethasone (LOTRISONE) cream Apply topically 2 (two) times a day. 30 g 5 Active Active Problems No known active problems Encounters Date Type Department Care Team Description 05/24/2025 1:30 PM EDT Office Visit [facility] at [address] [address] Soumya Newsome CNP Candidiasis of skin (Primary Dx) from Last 3 Months Social History Tobacco [...] PM EDT Sexual Orientation Not on file Last Filed [...] - - Body Mass Index - - Plan of Treatment Health Maintenance Due Date Last Done Comments Adult Td,Tdap Booster 1994 CREATININE LEVEL 1994 LITHIUM LEVEL 1994 TSH LEVEL 1994 VALPROIC ACID (DEPAKENE) LEVEL 1994 DEPRESSION SCREENING 2006 SMOKING Hx and SMOKELESS TOB ACCO SCREENING 2007 HEPATITIS C SCREENING 02/06/2012 HIV ONE-TIME SCREENING (18-6 5 YEARS) 02/06/2012 INFLUENZA VACCINE (#1) 2025 COVID-19 VACCINE (2024-2 6 season) 2025 HEPATITIS A VACCINES Aged Out No long er eligible based on patient's age to complete this topic HIB VACCINES Aged Out No longer eligi ble based on patient's age to complete this topic MENINGOCOCCAL VACCINES (ACWY) Aged Out No longer eligible based on patient's age to complete this topic MENINGOCOCCAL VACCINES (B) Aged Out N o longer eligible based on patient's age to complete this topic PNEUMOCOCCAL VACCINES (0-49 years) Aged Out No longer eligible based on patient's age to complete this topic Medical Devices Not on file Insurance MEDICARE PART A & B MEDICARE PART A & B [facility] & [facility] & B [place] MED[place] PART A & B [facility] MEDIC[facility] PART A & B [facility] Care Teams Sweet Dough Mixer Relationship Specialty Start Date End Date Austin Jensen PA [address] [place] [id number] PCP - General Physician Repairer Evaporator 05/24/25 Additional Source Comments The information contained in this document represents components of the legal health record. It is not the complete legal health record.[facility]
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
--- OUTSIDE RECORDS SUMMARY | 2025-05-27 15:13 | XMS_ITS | Encounter Summary ---
Author Organization [facility] Address [address] [place] [address] Care Team Providers Care Electrical Equipment Technician Name Role Phone Austin Jensen Primary Care Provider [phone] Reason for Visit * Reason Onset Date Comments PAC RX Refill 05/11/2023 Encounter Details Date Type Department Care Team (Late st Contact Info) Description 05/11/2023 Telephone [facility] [address] [place] [address] Telephone Intake, Staff PAC RX Refill Social [...] documented as of this encounter Care Teams Electrical Equipment Technician Relationship Specialty Start Date End Date Austin Jensen PA [address] [place] [id number] PCP - General 04/11/24 documented as of this encounter
--- OUTSIDE RECORDS SUMMARY | 2025-05-27 15:13 | XMS_ITS | Encounter Summary ---
Author Organization [facility] Address [address] [place] [address] Care Team Providers Care Earrings Fabricator Name Role Phone Austin Jensen Primary Care Provider [phone] Encounter Details Date Type Department Care Team (Late st Contact Info) Description 10/19/2017 myChart Message [facility] [address] [place] [address] Roxy Andrew MD [address] [place] [address] RE: Visit Follow-Up Question Social History Tobacco [...] documented as of this encounter Care Teams Earrings Fabricator Relationship Specialty Start Date End Date Austin Jensen PA [address] [place] [phone] PCP - General 04/11/24 documented as of this encounter
--- OUTSIDE RECORDS SUMMARY | 2025-05-27 15:13 | XMS_ITS | Clinical Summary ---
Author Organization [facility] Address [address] [place] [address] Phone Care Team Providers Care Coding Director Name Role Phone Austin Jensen Primary Care Provider Medications No known medications Encounters Date Type Department Care Team Description 03/05/2025 10:30 AM EDT Office Visit Orthopedic Surgery [facility] [address] [address] Fer Hernandez DPM [place] and [...] 06/09/2025 1:45 PM EST Office Visit Orthopedic [facility] [address] [address] Fer Hernandez DPM [address] [place] [address] Health Maintenance Due Date Last Done Comments HPV Vaccines ( 3-dose SCDM series) 2021 Cholesterol Screening (Lipid Panel) 07/08/2024 HIV Screening [...] 07/22/2031 07/22/2021, 07/20/2021, 05/11/2012, Additional history exists RSV Immunization Adult Patients (1 - 1-dose 75+ series) 2069 Hepatitis [...] Insurance MEDICARE MEDICAID - [place] Care Teams Coding Director Relationship Specialty Start Date End Date Austin Jensen PA [address] [place] [address] PCP - General Physician Chemical Mixer 07/08/24
--- OUTSIDE RECORDS SUMMARY | 2025-05-27 15:13 | XMS_ITS | Encounter Summary ---
Author Organization [facility] Address [address] [place] [address] Care Team Providers Care Machine Candle Molder Name Role Phone Austin Jensen Primary Care Provider [phone] Reason for Visit * Reason Onset Date Comments PAC Labs Needed 05/10/2023 PAC Appt Request - Established 05/10/2023 Encounter Details Date Type Department Care Team (Late st Contact Info) Description 05/10/2023 Telephone [facility] [address] [place] [address] Telephone Intake, Staff PAC Labs Needed; PAC [...] Wilhelm - 05/10/2023 11:23 AM EDT Patients powerhouse operator called in regards to appt for 05/24 it was cancelled I tried to reschedule appt with dr. 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
--- OUTSIDE RECORDS SUMMARY | 2025-05-27 15:13 | XMS_ITS | Encounter Summary ---
Author Organization [facility] Address [address] [place] [address] Care Team Providers Care Conservation Educator Name Role Phone Austin Jensen Primary Care Provider [phone] Encounter Details Date Type Department Care Team (Late st Contact Info) Description 08/31/2022 [employer]ure Therapeuticshart Message [facility] [address] [place] [address] Roxy Andrew MD [address] [place] [address] Tyree Brewster MRI Social History Tobacco Use [...] documented as of this encounter Care Teams Conservation Educator Relationship Specialty Start Date End Date Austin Jensen PA [address] [place] [phone] PCP - General 04/11/24 documented as of this encounter
== END 2025-05-27 12:30 | disposition home or self-care (01) ==
LOC: HO.US 12:29
PROVIDERS: PCP Physician Assistant; Visit Provider Physician Assistant
DX: N39.3 Stress incontinence (female) (male) (principal)
CPT/HCPCS: 76857

== ENCOUNTER → 2025-05-27 12:31 | Outpatient (BNV) | payer MEDICARE, MEDICAID, SELFPAY | PROVIDERS: PCP Physician Assistant; Visit Provider Radiology Diagnostic Radiology | DX: N39.3 Stress incontinence (female) (male) (principal) | CPT/HCPCS: 76857 ==

== ENCOUNTER 2025-07-07 15:37 | Outpatient (AMB) | payer MEDICARE, MEDICAID, SELFPAY ==
[2025-07-07 15:42] VITALS: BP 108/74; PULSE 68; O2SAT 96; BMI 42.7
--- NOTE | 2025-07-07 15:42 | A.OFFVIS_ITS ---
Vital Signs 07/07/25 15:42 Height 5 ft 5 in Weight 256 lb 13.416 oz BMI 42.7 BP 108/74 Blood Pressure Location Rt brachial Position Sitting Pulse 68 Pulse Source Pulse Oximeter Pulse Oximetry (%) 96 Oxygen Delivery Method Room Air Intake Visit Reasons: Obstructive sleep apnea Allergies No Known Allergies Allergy (Verified 07/07/25 15:46) HPI HPI Obstructive sleep apnea: Details: Tyree is a pleasant 30 year old male, never smoker, with underlying cerebral palsy with left sided hemiplegia, GERD, Bipolar and hypothyroidism. Today he is accompanied by a staff member from his fci. He was initially referred by PCP after HST 09/2024 revealed severe CHRISTOPHER with mild nocturnal hypoxemia and was started on CPAP therapy in APAP mode with pressure settings of 6-20 cmH20 was ordered by PCP and sent to [facility]. Of note, patient previously trialed CPAP therapy which he had difficulties tolerating and reported therapy was discontinued due to his machine being recalled. Since the last visit, he has received his CPAP machine in January per [employer] and unfortunately patient has been noncompliant due to cognitive and sensory challenges. Today he presents to review compliance report. At this time he denies any respiratory symptoms. [facility] Medical History Hypothyroid Bipolar disorder Mood disorder Cerebral palsy Bipolar 1 disorder Chronic GERD Family History Paternal Grandmother No problems noted. Social History Housing: Assisted Living Facility (fci ) Patient Tobacco Use Status: Never used Tobacco e-Cigarette/Vaping Use: Never Used service: No Current occupational status: disabled Cognitive needs: Yes Hearing needs: No Vision needs: No Review of Systems Const All systems reviewed & are unremarkable except as noted in HPI and below Reports daytime sleepiness, Reports difficulty sleeping, Reports snoring and Reports stops breathing during sleep ENT Reports Normal hearing present Card Denies dyspnea on exertion Resp Denies chest congestion, Denies cough, Denies hemoptysis, Denies excessive phlegm production, Denies dyspnea on exertion, Reports snoring and Denies wheezing Neuro Reports Normal hearing present Aller/Immun Denies wheezing Physical Exam Vital Signs: Last Vital Signs Pulse 68 07/07/25 15:42 BP 108/74 07/07/25 15:42 Pulse Ox 96 07/07/25 15:42 Oxygen Delivery Method Room Air 07/07/25 15:42 BMI result Body Mass Index 42.7 Const General: cooperative, healthy appearing, comfortable, no acute distress, well developed and alert Nutritional Appearance: obese Orientation/consciousness: patient oriented x3 HEENT Head: Yes normal to inspection, Yes normocephalic and Yes atraumatic Ears: hearing grossly normal bilaterally and external ears normal Eyes General: appearance normal, both eyes and all related structures Eyelids: Yes eyelids normal Sclerae: sclerae normal EOM: EOMs intact bilaterally Neck Neck: Yes normal visual inspection and Yes no lymphadenopathy Lymphatic: no lymphadenopathy noted Chest Chest palpation & inspection: normal inspection of the chest Resp Effort & Inspection: normal respiratory effort, able to speak in complete sentences, no audible wheezes, no cough, no stridor, not tachypneic, no tripod positioning and no use of accessory muscles Auscultation: clear to auscultation bilaterally Cardio Jugular venous distension: no JVD Rate: regular rate Rhythm: regular rhythm Skin Other: warm, dry General skin exam: no rashes or lesions noted Neuro General: patient oriented x3 Cranial nerves: Yes Normal hearing present Extrem Other: left sided hemiplegia General: Yes normal to inspection, Yes capillary refill normal, Yes no clubbing, cyanosis or edema and Yes no pedal edema Psych Appearance: grossly normal and well kempt Mental Status: mental status grossly normal Speech and movement: Clear speech present and Slowed speech present (Psych) Affect: normal affect Attitude: cooperative Thought process: Normal thought process present Thought content: Normal thought content present Insight: Fair insight present (Psych) Judgement: Fair judgement present (Psych) Assessment & Plan Assessment & Plan (1) Severe obstructive sleep apnea: Code(s): G47.33 - Obstructive sleep apnea (adult) (pediatric) Category: Medical (2) Nocturnal hypoxemia: Code(s): G47.34 - Idiopathic sleep related nonobstructive alveolar hypoventilation Category: Medical Plan Again reviewed prior sleep study which demonstrated severe obstructive sleep apnea with an AHI 51 and mild nocturnal hypoxemia <88% 33 minutes. Discussed importance of consistent use as compliance report reflects minimal data due to noncompliance likely from cognitive and sensory challenges. He was agreeable to re-attempt use on a nightly basis for at least 4 hours. Discussed reaching out to [facility] to trial a different mask to improve comfort as well as compliance. If patient continues to have difficulties, would consider nocturnal supplemental oxygen in place of CPAP therapy. All questions were answered and patient is in agreement of plan. Will follow-up in 3 months or sooner if needed. Coding Level of Care Code Est Pt Level 4 (11499) Diagnoses Severe obstructive sleep apnea G47.33 Nocturnal hypoxemia G47.34
--- OUTSIDE RECORDS SUMMARY | 2025-07-07 22:07 | XMS_ITS | Encounter Summary ---
Author Organization [facility] Address [address] [place] [address] Care Team Providers Care Light Armored Reconnaissance Officer Name Role Phone Austin Jensen Primary Care Provider [phone] Encounter Details Date Type Department Care Team (Late st Contact Info) Description 08/31/2022 INSOMENIAhart Message [facility] [address] [place], [place] [phone] Roxy Andrew MD [address] [place] [address] MM Neurological Assessment Social History Tobacco Use [...] 04/23/2017 04/23/2017 R/O Respiratory Virus Infection 08/11/2022 04/14/2023 4:05 AM EDT R/O Influenza 08/11/2022 08/11/2022 04/14/2023 4:0 5 AM EDT COVID-19 - Suspected infection 08/11/2022 08/11/2022 04/14/2023 4:05 AM EDT R/O Respiratory Virus Infection 10/08/2022 04/14/2023 5:04 AM EDT R/O Influenza 10/08/2022 10/08/2022 04/14/2023 5:0 4 AM EDT COVID-19 - Suspected infection 10/08/2022 10/08/2022 04/14/2023 5:04 AM EDT documented as of this encounter Care Teams Light Armored Reconnaissance Officer Relationship Specialty Start Date End Date Austin Jensen PA [address] [place] [id number] PCP - General 04/11/24 documented as of this encounter
--- OUTSIDE RECORDS SUMMARY | 2025-07-07 22:07 | XMS_ITS | Encounter Summary ---
Author Organization [facility] Address [address] [place] [address] Care Team Providers Care Coke Drawer Hand Name Role Phone Austin Jensen Primary Care Provider [phone] Reason for Visit * Reason Onset Date Comments PAC RX Refill 05/11/2023 Encounter Details Date Type Department Care Team (Late st Contact Info) Description 05/11/2023 Telephone [facility] Patient Access Center [address] [place] [address] Telephone Intake, Staff PAC RX Refill Social [...] documented as of this encounter Care Teams Coke Drawer Hand Relationship Specialty Start Date End Date Austin Jensen PA [address] [place] [address] PCP - General 04/11/24 documented as of this encounter
--- OUTSIDE RECORDS SUMMARY | 2025-07-07 22:07 | XMS_ITS | Encounter Summary ---
Author Organization [facility] Address [address] [place] [address] Care Team Providers Care Harbor Boat Pilot Name Role Phone Austin Jensen Primary Care Provider [phone] Encounter Details Date Type Department Care Team (Late st Contact Info) Description 10/19/2017 Allux Medicalhart Message [facility] Neurology Clinic [address] [place] [address] Roxy Andrew MD [address] [place] [address] RE: Visit Follow-Up Question Social History Tobacco [...] documented as of this encounter Care Teams Harbor Boat Pilot Relationship Specialty Start Date End Date Austin Jensen PA [address] [place] [address] PCP - General 04/11/24 documented as of this encounter
--- OUTSIDE RECORDS SUMMARY | 2025-07-07 22:07 | XMS_ITS | Encounter Summary ---
Author Organization [facility] Address [address] [place] [address] Care Team Providers Care Otologist Name Role Phone Austin Jensen Primary Care Provider [phone] Encounter Details Date Type Department Care Team (Late st Contact Info) Description 08/31/2022 Definigenhart Message [facility] Neurology Clinic [address] [place], [place] [phone] Roxy Andrew MD [address] [place] [address] Tyree Brewster MRI Social History Tobacco Use [...] documented as of this encounter Care Teams Otologist Relationship Specialty Start Date End Date Austin Jensen PA [address] [place] [id number] PCP - General 04/11/24 documented as of this encounter
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
--- OUTSIDE RECORDS SUMMARY | 2025-07-07 22:07 | XMS_ITS | Encounter Summary ---
Author Organization [facility] Address [address] [place] [address] Care Team Providers Care Light Cleaner Name Role Phone Austin Jensen Primary Care Provider [phone] Reason for Visit * Reason Onset Date Comments PAC Labs Needed 05/10/2023 PAC Appt Request - Established 05/10/2023 Encounter Details Date Type Department Care Team (Late st Contact Info) Description 05/10/2023 Telephone [facility] Patient Access Center [address] [place] [phone] Telephone Intake, Staff PAC Labs Needed; PAC [...] - 05/10/2023 11:23 AM EDT Patients warehouse engineer called in regards to appt for 05/24 it was cancelled I tried to reschedule appt with dr. 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
--- OUTSIDE RECORDS SUMMARY | 2025-07-07 22:07 | XMS_ITS | Clinical Summary ---
Author Organization [facility] Address [address] [place] [address] Phone Care Team Providers Care Tile Sprayer Name Role Phone Austin Jensen Primary Care Provider + Pcp, Unknown Unavailable Unavailable Allergies No known active allergies Medications docusate [...] Encounters Date Type Department Care Team Description 06/16/2025 Telephone [facility] at [address] [address] Cindy Dunlap FNP 06/16/2025 Telephone [facility] at [address] [address] Cindy Dunlap, BLEND PLANT OPERATOR 05/24/2025 1:30 PM EDT Office Visit [facility] at [address] [address] Soumya Newsome CNP Candidiasis of skin (Primary [...] Adult Td,Tdap Booster 1994 CREATININE LEVEL 1994 TSH LEVEL 1994 DEPRESSION SCREENING 2006 SMOKING Hx and SMOKELESS TOB ACCO SCREENING 2007 HEPATITIS C SCREENING 02/06/2012 HIV ONE-TIME SCREENING (18-6 5 YEARS) 02/06/2012 LITHIUM LEVEL 12/17/2022 12/17/2021 VALPROIC ACID (DEPAKENE) LEVEL 12/17/2022 12/17/2021 INFLUENZA VACCINE (#1) 2025 COVID-19 VACCINE (1 - 2024-2 6 season) 2025 HEPATITIS A VACCINES Aged [...] this topic Medical Devices Not on file Procedures Procedure Name Priority Date/Time Associated Diagnosis Comments VALPROIC ACID Routine 12/17/2021 5:16 PM EDT LITHIUM LEVEL Routine 12/17/2021 5:16 PM EDT from Last 3 Months or Most Recently Relevant to Health Maintenance Results * LITHIUM LEVEL (12/17/2021 5:16 PM EDT) [place] 1.1 1.0 - 1.2 mmol/L [facility] 12/17/2021 5:16 PM EDT us Unknown Unknown MD LAB BLOOD BKR ORDERABLES Olga l Result [address] [address], [facility] [phone] * Valproic acid (12/17/2021 5:16 PM EDT) Valproic Acid 83.5 50 - 100 ug/mL [facility] 12/17/2021 5:16 PM EDT us Unknown Unknown MD LAB BLOOD BKR ORDERABLES Olga l Result [facility] [address] [place] [address], [facility] [phone] from Last 3 Months or Most Recently Relevant to Health Maintenance Insurance [place]IC[place] PART A & [place] [facility] & B [facility] MEDICARE PART A & B Member Subscriber Plan / Payer (Ef fective 2014-) Name:NeyTyree Member ID:[id number] Relation to Subscriber:Self Name:Tyree Brewstero Subscriber ID:[id number] Payer ID:[id number] Group ID:Not on file Type:Medicare Address: [employer] [address] [place] [phone] [facility] Care Teams Tile Sprayer Relationship Specialty Start Date End Date Austin Jensen PA [address] [place] [id number] PCP - General Physician Security Solutions Architect 05/24/25 Pcp, Unknown 05/24/25 Additional Source Comments The information contained in this document represents components of the legal health record. It is not the complete legal health record.[facility]
--- OUTSIDE RECORDS SUMMARY | 2025-07-07 22:07 | XMS_ITS | Clinical Summary ---
Author Organization [facility] Address [address] [place] [address] Phone Care Team Providers Care Annual Giving Director Name Role Phone Austin Jensen Primary Care Provider Medications No known medications Social History Tobacco Use Types Packs/Day Years [...] 03/05/2025 10:18 AM EDT Plan of Treatment Health Maintenance Due Date Last Done Comments HPV Vaccines (1 - 3-dose SCDM series) 2021 Cholesterol Screening (Lipid Panel) 07/08/2024 HIV Screening 07/08/2024 Hepatitis C Screening 07/08/2024 Medicare Annual Wellness Visit 07/08/2024 Social Influencers of Health Screening 07/08/2024 Depression Screening 07/24/2024 Hypertension/CHF/CAD Annual BMP Blood Test 03/05/2025 10/14/2022 COVID-19 Vaccine ( season) 2025 06/05/2021, 08/29/2020, 08/08/2020 Influenza Vaccine (#1) 2025 3, 04/16/2021, 06/16/2020, Additional history exists DTaP,Tdap,and Td [...] Insurance MEDICARE MEDICAID - [place] Care Teams Annual Giving Director Relationship Specialty Start Date End Date Austin Jensen PA [facility] [place] [phone] PCP - General Physician Credit Associate 07/08/24
== END 2025-07-07 16:12 | disposition home or self-care (01) ==
PROVIDERS: PCP Physician Assistant; Visit Provider Nurse Practitioner Family
DX: G47.33 Obstructive sleep apnea (adult) (pediatric) (principal); G47.34 Idiopathic sleep related nonobstructive alveolar hypoventilation
CPT/HCPCS: 99214

== ENCOUNTER → 2025-07-07 15:37 | Outpatient (BNVA) | payer MEDICARE, MEDICAID, SELFPAY | PROVIDERS: PCP Physician Assistant; Visit Provider Nurse Practitioner Family | DX: G47.33 Obstructive sleep apnea (adult) (pediatric) (principal); G47.34 Idiopathic sleep related nonobstructive alveolar hypoventilation; Z99.89 Dependence on other enabling machines and devices | CPT/HCPCS: 99212 ==